=== PATIENT | male | born 1955 | race Caucasian/White ===

== ENCOUNTER 2016-12-19 14:09 | Observation (INO) ==
--- NOTE | 2016-12-19 14:32 | Emergency Department Note ---
Disposition Clinical Impression: Atrial fibrillation Qualifiers: Atrial fibrillation type: chronic Qualified Code(s): I48.2 - Chronic atrial fibrillation Disposition: Admitted As Inpatient Condition: Good Referrals: Flor Jerome [Primary Care Provider] - Forms: ED Satisfaction Letter Time of Disposition: 15:36 Chest Pain HPI - General Chief Complaint: ED Chest Pain Stated Complaint: FIB RVR Time Seen by Provider: 12/19/16 14:17 Source: patient Mode of arrival: ambulatory Limitations: no limitations Vital Signs Reviewed: Yes Nursing Notes Reviewed: Yes - History of Present Illness HPI Narrative: 61-year-old male presents from flame degreaser's office for atrial fibrillation with rapid ventricular response. He states that he has had A. fib for "years" and does not have any symptoms at this time. He denies any medication noncompliance, but admits that his diltiazem was increased about 2 weeks ago due to elevated heart rates. He denies any chest pain, shortness of breath, cough, cold, recent illness or injury. He denies any GI or symptoms, rashes or edema. He is not anticoagulated this time, based flame degreaser today told him that he should be due to his diabetes for stroke prevention. He used to be on xarelto, but stopped that 2 years ago for hematuria due to bladder tumors. His tumors were removed approximately 2 years ago. He does not believe that these were cancerous. He has not had any bleeding since then, but has not been anticoagulated since then. He only takes an aspirin daily. Pt complaint: chest pain - Related Data Allergies Allergy/AdvReac Type Severity Reaction Status Date / Time cephalexin [From Keflex] Allergy See Verified 12/19/16 14:39 Comments clarithromycin [From Biaxin] Allergy See Verified 12/19/16 14:39 Comments metoclopramide [From Reglan] Allergy See Verified 12/19/16 14:39 Comments All systems ED: reviewed and negative except as stated. Chest Pain PMH - Past Medical History Medical history: Reports: atrial fibrillation, diabetes Physical Exam - Head Head exam: atraumatic, normocephalic, normal inspection - Eye Eye exam: Present: normal appearance, PERRL, EOMI - ENT ENT exam: normal exam, normal oropharynx, mucous membranes moist - Neck Neck exam: Present: normal inspection, full ROM, trachea midline - Chest Chest inspection: Present: normal inspection, symmetric chest wall rise - Respiratory Respiratory exam: Clear to auscultation bilaterally without wheezes rales or rhonchi Cardiovascular Irregularly irregular. No murmur. - Abdominal Exam Abdominal exam: Present: soft, Non-Tender. Absent: tenderness, distention, guarding, rebound, rigidity - Extremities Exam Extremities exam: Present: normal inspection, full ROM - Expanded Lower Extremity Exam Hip/Pelvis exam: Present: normal inspection, full ROM - Back Exam Back exam: Present: normal inspection, full ROM. Absent: tenderness, CVA tenderness (R), CVA tenderness (L) - Neurological Exam Neurological exam: Present: alert, oriented X3, CN II-XII intact - Psychiatric Psychiatric exam: Present: normal affect, normal mood - Skin Skin exam: Present: warm, dry, intact, normal color Course - Reevaluation(s) Reevaluation #1: Labs and chest x-ray reviewed and are unremarkable. TSH is pending. After diltiazem bolus of 25 mg followed by drip of 10 mg the heart rate has improved to 80-100. Time: 15:21 Reevaluation #2: Case discussed with flame degreaser global compensation manager Dr. Howe. He recommends Lovenox for anticoagulation and an echocardiogram ordered as an inpatient. He requests hospitalist for admission. The hospitalist Dr. Carrero accepts the patient to the hospitalist service. Time: 15:37 Vital Signs Temperature 98.1 F 12/19/16 14:31 Pulse Rate 134 12/19/16 14:31 Respiratory Rate 18 12/19/16 14:31 Blood Pressure 145/114 12/19/16 14:31 O2 Sat by Pulse Oximetry 95 12/19/16 14:31 Temperature 98.1 F 12/19/16 14:31 Pulse Rate 134 12/19/16 14:31 Respiratory Rate 18 12/19/16 14:31 Blood Pressure 145/114 12/19/16 14:31 O2 Sat by Pulse Oximetry 95 12/19/16 14:31 Oxygen Delivery Oxygen Delivery Room Air Chest Pain - Lab Data Lab results reviewed: Yes I reviewed the patient's lab results. Result diagrams: 12/19/16 14:30 12/19/16 14:30 Lab Results 12/19/16 12/19/16 12/19/16 Range/Units 14:30 14:30 14:30 WBC 10.3 (4.3-11.1) K/mcL RBC 5.40 (4.19-5.50) M/mcL Hgb 16.5 (12.9-16.9) g/dL Hct 49.0 (37.5-50.1) % MCV 90.7 (83.0-100.0) fL MCH 30.6 (28.0-33.3) pg MCHC 33.7 (31.6-35.5) g/dL RDW 13.2 (11.5-14.5) % Plt Count 273 (140-400) K/mcL MPV 9.4 (9.4-12.4) fL Immature Gran % 0.3 (0-4) % Seg Neutrophils % 71.7 % Lymphocytes % 21.3 % Monocytes % 4.9 % Eosinophils % 1.3 % Basophils % 0.5 % Neutrophils # 7.4 (1.6-8.9) K/mcL Lymphocytes # 2.2 (0.6-4.6) K/mcL Monocytes # 0.5 (0.0-1.3) K/mcL Eosinophils # 0.1 (0.0-0.6) K/mcL Basophils # 0.1 (0.0-0.2) K/mcL PT 12.3 H (9.4-12.1) Seconds INR 1.1 APTT 33.0 (26.0-36.0) Seconds Sodium 139 (136-145) mEq/L Potassium 4.4 (3.5-4.5) mEq/L Chloride 104 (98-109) mEq/L Carbon Dioxide 21 (19-29) mEq/L BUN 18 (8-26) mg/dL Creatinine 1.31 H (0.72-1.25) mg/dL Est GFR ( Amer) > 60 (> 60) Est GFR (Non-Af Amer) 55 L (> 60) BUN/Creatinine Ratio 14 (6-26) Glucose 391 H (70-99) mg/dL Calculated Osmolality 306 H (280-300) Calcium 9.6 (8.6-10.8) mg/dL Troponin I (0-0.03) ng/mL 12/19/16 Range/Units 14:30 WBC (4.3-11.1) K/mcL RBC (4.19-5.50) M/mcL Hgb (12.9-16.9) g/dL Hct (37.5-50.1) % MCV (83.0-100.0) fL MCH (28.0-33.3) pg MCHC (31.6-35.5) g/dL RDW (11.5-14.5) % Plt Count (140-400) K/mcL MPV (9.4-12.4) fL Immature Gran % (0-4) % Seg Neutrophils % % Lymphocytes % % Monocytes % % Eosinophils % % Basophils % % Neutrophils # (1.6-8.9) K/mcL Lymphocytes # (0.6-4.6) K/mcL Monocytes # (0.0-1.3) K/mcL Eosinophils # (0.0-0.6) K/mcL Basophils # (0.0-0.2) K/mcL PT (9.4-12.1) Seconds INR APTT (26.0-36.0) Seconds Sodium (136-145) mEq/L Potassium (3.5-4.5) mEq/L Chloride (98-109) mEq/L Carbon Dioxide (19-29) mEq/L BUN (8-26) mg/dL Creatinine (0.72-1.25) mg/dL Est GFR ( Amer) (> 60) Est GFR (Non-Af Amer) (> 60) BUN/Creatinine Ratio (6-26) Glucose (70-99) mg/dL Calculated Osmolality (280-300) Calcium (8.6-10.8) mg/dL Troponin I 0.00 (0-0.03) ng/mL - Radiology Data Radiology results reviewed: Yes I reviewed the patient's radiology results. - EKG Data EKG attestation: Yes I reviewed and interpreted this EKG. EKG results narrative: A. fib with RVR at [address] elevation or depression. Nonspecific diffuse ST changes. Atrial fibrillation with RVR is new compared with 04/14/2011.
[2016-12-19 14:49] LABS: Basophils # 0.1 K/mcL (0.0-0.2); Basophils % 0.5 %; Eosinophils # 0.1 K/mcL (0.0-0.6); Eosinophils % 1.3 %; Hemoglobin 16.5 g/dL (12.9-16.9); Immature Granulocytes % 0.3 % (0-4); Lymphocytes # 2.2 K/mcL (0.6-4.6); Lymphocytes % 21.3 %; Mean Corpuscular HGB Conc 33.7 g/dL (31.6-35.5); Mean Corpuscular Hemoglobin 30.6 pg (28.0-33.3); Mean Corpuscular Volume 90.7 fL (83.0-100.0); Mean Platelet Volume 9.4 fL (9.4-12.4); Monocytes # 0.5 K/mcL (0.0-1.3); Monocytes % 4.9 %; Neutrophils # 7.4 K/mcL (1.6-8.9); Platelet Count 273 K/mcL (140-400); Red Cell Distribution Width 13.2 % (11.5-14.5); Segmented Neutrophils % 71.7 %
[2016-12-19 14:57] LABS: INR 1.1; Prothrombin Time 12.3 Seconds (9.4-12.1)
[2016-12-19 15:00] LABS: BUN/Creatinine Ratio 14 (6-26); Blood Urea Nitrogen 18 mg/dL (8-26); Calcium 9.6 mg/dL (8.6-10.8); Carbon Dioxide 21 mEq/L (19-29); Chloride 104 mEq/L (98-109); Glucose 391 mg/dL (70-99); Osmolality,Calculated 306 (280-300); Potassium 4.4 mEq/L (3.5-4.5); Sodium 139 mEq/L (136-145); eGFR For African Americans > 60 (> 60); eGFR For Non-African Americans 55 (> 60)
[2016-12-19] MEDS ORDERED: *HR* Enoxaparin 120 MG/0.8 ML SYRINGE SQ STA (15:28)
[2016-12-19 15:41] LABS: Thyroid Stimulating Hormone 1.378 mcIU/mL (0.350-4.840)
--- NOTE | 2016-12-19 16:12 | Emergency Department Note ---
Disposition Clinical Impression: Atrial fibrillation Qualifiers: Atrial fibrillation type: chronic Qualified Code(s): I48.2 - Chronic atrial fibrillation Disposition: Admitted As Inpatient Condition: Good General Adult HPI - General Chief complaint: ED Arrhythmia/Palpitations Stated complaint: FIB RVR Time Seen by Provider: 12/19/16 14:17 Source: patient Mode of arrival: ambulatory Limitations: no limitations - History of Present Illness Pain Scale: 0 - Related Data Home Medications Medication Instructions Recorded Confirmed Aspirin 81 mg PO DAILY 12/19/16 12/19/16 Atorvastatin Calcium [Lipitor] 80 mg PO HS 12/19/16 12/19/16 Diltiazem HCl [Diltiazem ER] 120 mg PO 12/19/16 12/19/16 Diltiazem HCl [Diltiazem ER] 180 mg PO [facility] 12/19/16 12/19/16 Gabapentin [Neurontin] 300 mg PO QA 12/19/16 12/19/16 Gabapentin [Neurontin] 900 mg PO 12/19/16 12/19/16 Insulin Glargine [Lantus] 30 - 40 unit SQ 12/19/16 12/19/16 Insulin LISPRO [Humalog Kwikpen 0 unit SQ TIDWM 12/19/16 12/19/16 U-100] Lisinopril [Zestril] 5 mg PO DAILY 12/19/16 12/19/16 Venlafaxine XR (24 HR) [Effexor XR] 150 mg PO DAILY 12/19/16 12/19/16 Allergies Allergy/AdvReac Type Severity Reaction Status Date / Time cephalexin [From Keflex] Allergy See Verified 12/19/16 14:39 Comments clarithromycin [From Biaxin] Allergy See Verified 12/19/16 14:39 Comments metoclopramide [From Reglan] Allergy See Verified 12/19/16 14:39 Comments Past Medical History - Past Medical History Medical history: Reports: atrial fibrillation, diabetes - Social History Smoking Status: Never smoker Alcohol use: Reports: none Drug use: Reports: none Physical Exam - General Limitations: no limitations General appearance: alert, in no apparent distress Course - Reevaluation(s) Reevaluation #1: I saw the patient with the resident, Dr. Acosta. Patient presented with a rapid heart rate. He has a history of A. fib and recently has been having high heart rates and has been increasing his home medications under the direction of his physician. However today's heart rate was very high. He arrives with a heart rate at times in the 170 range. It is obviously in atrial fibrillation. He was given Cardizem IV and then started on a Cardizem drip. Heart rate is now 100 although still in atrial fibrillation. We have spoken with the hospice already in arranging to admit the patient. There is no sign of ischemia or other complication. Time: 16:12 Vital Signs Temperature 98.1 F 12/19/16 14:31 Pulse Rate 134 12/19/16 14:31 Respiratory Rate 18 12/19/16 14:31 Blood Pressure 145/114 12/19/16 14:31 O2 Sat by Pulse Oximetry 95 12/19/16 14:31 Temperature 98.1 F 12/19/16 14:31 Pulse Rate 106 12/19/16 15:36 Respiratory Rate 18 12/19/16 16:05 Blood Pressure 134/78 12/19/16 16:05 O2 Sat by Pulse Oximetry 95 12/19/16 15:36 Oxygen Delivery Oxygen Delivery Room Air Medical Decision Making - Lab Data Result diagrams: 12/19/16 14:30 12/19/16 14:30 Lab Results 12/19/16 12/19/16 12/19/16 Range/Units 14:30 14:30 14:30 WBC 10.3 (4.3-11.1) K/mcL RBC 5.40 (4.19-5.50) M/mcL Hgb 16.5 (12.9-16.9) g/dL Hct 49.0 (37.5-50.1) % MCV 90.7 (83.0-100.0) fL MCH 30.6 (28.0-33.3) pg MCHC 33.7 (31.6-35.5) g/dL RDW 13.2 (11.5-14.5) % Plt Count 273 (140-400) K/mcL MPV 9.4 (9.4-12.4) fL Immature Gran % 0.3 (0-4) % Seg Neutrophils % 71.7 % Lymphocytes % 21.3 % Monocytes % 4.9 % Eosinophils % 1.3 % Basophils % 0.5 % Neutrophils # 7.4 (1.6-8.9) K/mcL Lymphocytes # 2.2 (0.6-4.6) K/mcL Monocytes # 0.5 (0.0-1.3) K/mcL Eosinophils # 0.1 (0.0-0.6) K/mcL Basophils # 0.1 (0.0-0.2) K/mcL PT 12.3 H (9.4-12.1) Seconds INR 1.1 APTT 33.0 (26.0-36.0) Seconds Sodium 139 (136-145) mEq/L Potassium 4.4 (3.5-4.5) mEq/L Chloride 104 (98-109) mEq/L Carbon Dioxide 21 (19-29) mEq/L BUN 18 (8-26) mg/dL Creatinine 1.31 H (0.72-1.25) mg/dL Est GFR ( Amer) > 60 (> 60) Est GFR (Non-Af Amer) 55 L (> 60) BUN/Creatinine Ratio 14 (6-26) Glucose 391 H (70-99) mg/dL Calculated Osmolality 306 H (280-300) Calcium 9.6 (8.6-10.8) mg/dL Troponin I (0-0.03) ng/mL TSH 1.378 (0.350-4.840) mcIU/mL 12/19/16 Range/Units 14:30 WBC (4.3-11.1) K/mcL RBC (4.19-5.50) M/mcL Hgb (12.9-16.9) g/dL Hct (37.5-50.1) % MCV (83.0-100.0) fL MCH (28.0-33.3) pg MCHC (31.6-35.5) g/dL RDW (11.5-14.5) % Plt Count (140-400) K/mcL MPV (9.4-12.4) fL Immature Gran % (0-4) % Seg Neutrophils % % Lymphocytes % % Monocytes % % Eosinophils % % Basophils % % Neutrophils # (1.6-8.9) K/mcL Lymphocytes # (0.6-4.6) K/mcL Monocytes # (0.0-1.3) K/mcL Eosinophils # (0.0-0.6) K/mcL Basophils # (0.0-0.2) K/mcL PT (9.4-12.1) Seconds INR APTT (26.0-36.0) Seconds Sodium (136-145) mEq/L Potassium (3.5-4.5) mEq/L Chloride (98-109) mEq/L Carbon Dioxide (19-29) mEq/L BUN (8-26) mg/dL Creatinine (0.72-1.25) mg/dL Est GFR ( Amer) (> 60) Est GFR (Non-Af Amer) (> 60) BUN/Creatinine Ratio (6-26) Glucose (70-99) mg/dL Calculated Osmolality (280-300) Calcium (8.6-10.8) mg/dL Troponin I 0.00 (0-0.03) ng/mL TSH (0.350-4.840) mcIU/mL Attestation Statement - Attestation Attestation: I, Dr. Guajardo, examined this patient [id number] and my medical decision- making was reviewed with Dr. Acosta, Resident Physician. I agree with the documented findings, disposition and treatment plan as described except to the extent set forth below. Please see my progress notes for details.
[2016-12-19] MEDS ORDERED: D5% in Water 1,000 ML IV PRN (18:53)
[2016-12-19] MEDS ORDERED: Dextrose Gel 15 GM PO PRN ×2 (18:53)
[2016-12-19] MEDS ORDERED: *HR* Dextrose 50 % in Water (Syg) 50 ML SYRINGE IVP PRN (18:53)
--- NOTE | 2016-12-19 18:57 | Internal Med History&Physical ---
<Travon Benavides - Last Filed: 12/19/16 20:04> Date of Encounter: 12/19/16 Time of Encounter: 18:57 Assessment and Plan (1) Atrial fibrillation Current visit: Yes Status: Acute -Patient found to be in atrial fibrillation at [place] cardiology office. Sent to the emergency department and admitted as an inpatient. -Troponin negative, chest x-ray unchanged from previous, EKG shows atrial fibrillation RVR, CBC within normal limits, BMP shows creatinine 1.3, TSH normal. -Unknown trigger of his A. fib -Currently asymptomatic, denies chest pain and shortness of breath. Resting comfortably in bed. HR 105 in afib -Echo ordered, labs ordered. Resume Cardizem drip, continue Lovenox -We will order diet for patient tonight. Patient nothing by mouth at midnight, may resume diet after cardiology has seen the patient and evaluate. Qualifiers: Atrial fibrillation type: chronic Qualified Code(s): I48.2 - Chronic atrial fibrillation (2) Diabetes type 2, uncontrolled Current visit: Yes Status: Acute -Patient states that his last A1c was 8.5. -Currently on insulin. Lantus and Humalog 35-40 -Glucose currently >300. -We will resume home medication, frequent blood sugar checks. 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: with jumpbasting machine operator use Qualified Code(s) : E11.8 - Type 2 diabetes mellitus with unspecified complications; E11.65 - Type 2 diabetes mellitus with hyperglycemia; Z79.4 - halfway (current) use of insulin (3) Hyperlipidemia Current visit: Yes Status: Acute -We will resume home med (4) Depression Current visit: Yes Status: Chronic -We will resume home meds Qualifiers: Depression Type: unspecified Qualified Code(s): F32.9 - Major depressive disorder, single episode, unspecified Internal Medicine - H&P: HPI Chief complaint: A fib Admitted From: Emergency Dept (From [facility] office to ED to the floor) Plans for Post Hospital Care: Home History of present illness: Mr. Chacko is a 61 year old male, PMH Ablationx2, HTN, DM, Depression, admitted for atrial fibrillation. He was at Dr. Arceo's office today for routine checkup of afib, discovered to have A. fib and hypertension refractory to treatment, patient sent to the [place] emergency department and admitted. At the time patient stated his felt fluttering. Currently is asymptomatic. Denies nausea, vomiting, chest pain, shortness of breath, palpitations, fevers. He is resting comfortably in bed and smiling. He has no questions or concerns at this time. States he has been compliant with his medication, Cardizem 180 mg in the morning and 120 mg at night. He has had A. fib for years , underwent 2 cardiac ablations. Notices his "atrial fib has been acting up for the past year at night when I go to bed." Currently only takes an aspirin. Denies smoking, drinking, drug use. 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 He lives at home with her. No previous history of stent or CABG. has been admitted previously for atrial fibrillation x 1 Past Med Surg Social Fam HX - Past Medical History Medical history: atrial fibrillation, diabetes, hypertension, kidney stones, other (Bladder cancer with mass removal that was "pre malignant") Psychiatric history: depression - Past Surgical History Surgical History: cancer surgery (Bladder), cholecystectomy, other (Cardiac ablation 2) - Social History Smoking Status: Never smoker Smokeless Tobacco Status: No Alcohol use: none Drug use: none Internal Medicine - H&P: Meds Aspirin 81 mg PO DAILY 12/19/16 [History] Atorvastatin Calcium [Lipitor] 80 mg PO HS 12/19/16 [History] Gabapentin [Neurontin] 300 mg PO QAM 12/19/16 [History] Gabapentin [Neurontin] 900 mg PO HS 12/19/16 [History] Insulin Glargine [Lantus] 30 - 40 unit SQ HS 12/19/16 [History] Insulin LISPRO [Humalog Kwikpen U-100] 0 unit SQ TIDWM 12/19/16 [History] Lisinopril [Zestril] 5 mg PO DAILY 12/19/16 [History] Venlafaxine XR (24 HR) [Effexor Xr] 150 mg PO DAILY 12/19/16 [History] Apixaban [Eliquis] 5 mg PO BID #30 tablet 12/20/16 [Rx] Diltiazem CD (24hr) [Cardizem CD] 300 mg PO DAILY #30 cap.er.24h 12/20/16 [Rx] Lisinopril [Zestril] 5 mg PO DAILY tablet 12/20/16 [Rx] Allergies cephalexin [From Keflex] Allergy (Verified 12/19/16 14:39) See Comments clarithromycin [From Biaxin] Allergy (Verified 12/19/16 14:39) See Comments metoclopramide [From Reglan] Allergy (Verified 12/19/16 14:39) See Comments All Systems PM: A 10-system review of systems was performed and is negative for pertinent findings except as documented above in the HPI. - Constitutional Constitutional: no chills, no fever(s), no night sweats - EENT Eyes: no change in vision, no discharge, no pain, no photophobia Nose, mouth and throat: no dysphagia, no nasal discharge, no neck pain, no sore throat - Cardiovascular Cardiovascular ROS IM: no chest pain, no diaphoresis, no dyspnea, no lightheadedness, no palpitations, no syncope - Respiratory Respiratory: no cough, no dyspnea, no wheezing, no excessive phlegm production - Gastrointestinal Gastrointestinal: no abdominal pain, no diarrhea, no hematemesis, no hematochezia, no melena, no nausea, no vomiting - Musculoskeletal Musculoskeletal ROS IM: no numbness, no tingling - Integumentary Integumentary IM: no rash, no unusual bruising - Neurological Neurological ROS: no confusion, no convulsions, no focal weakness, no numbness, no tingling, no tremor(s) - Psychiatric Psychiatric: as per HPI, depression, no anxiety, no confusion - Endocrine Endocrine IM: no polydipsia, no polyphagia, no polyuria - Hematologic/Lymphatic Hematologic/Lymphatic: no easy bruising - Allergic/Immunologic Allergic/Immunologic: no tongue swelling, no throat swelling - Constitutional Vitals: Temp Pulse Resp BP Pulse Ox 98.2 F 97 18 140/83 93 L 12/19/16 17:08 12/19/16 17:08 12/19/16 17:08 12/19/16 17:08 12/19/16 18:10 - Head Head exam: Present: atraumatic, normocephalic - Respiratory Respiratory exam: Present: decreased breath sounds, CTAB - Cardiovascular Cardiovascular exam: Present: irregular rhythm, tachycardia. Absent: diastolic murmur, gallop, rubs, systolic murmur - GI/Abdominal GI/Abdominal exam: Present: normal bowel sounds, soft, no peritoneal signs. Absent: distended, tenderness - Neurological Exam Neurological exam: Present: oriented X3, no focal deficits. Absent: pronater drift, facial droop, speech deficit - Psychiatric Psychiatric exam: Present: normal affect, normal mood - Skin Skin exam: Present: dry, intact - Other Additional findings: No peripheral edema Internal Med - H&P Results - Labs CBC & Chem 7: 12/19/16 14:30 12/19/16 14:30 <Jj Johnson - Last Filed: 12/20/16 14:20> Date of Encounter: 12/20/16 Internal Medicine - H&P: HPI History of present illness: Mr. Chacko is a 61 year old male Past Med Surg Social Fam HX - Family History Mother Hx Family Cardiac Disorders: No Hx Family Cancer: No All Systems PM: A 10-system review of systems was performed and is negative for pertinent findings except as documented above in the HPI. - Constitutional Vitals: Temp Pulse Resp BP Pulse Ox 98 F 80 16 123/79 95 12/20/16 12:28 12/20/16 12:28 12/20/16 12:28 12/20/16 12:28 12/20/16 12:28 Internal Med - H&P Results - Labs CBC & Chem 7: 12/20/16 04:26 12/20/16 04:26 Labs: Short CBC 12/20/16 Range/Units 04:26 WBC 8.9 (4.3-11.1) K/mcL Hgb 15.6 (12.9-16.9) g/dL Hct 46.4 (37.5-50.1) % Plt Count 272 (140-400) K/mcL BMP 12/20/16 04:26 Sodium 143 Potassium 3.8 Chloride 107 Carbon Dioxide 22 BUN 18 Creatinine 1.07 Glucose 167 H Calcium 9.6 Liver Function 12/20/16 Range/Units 04:26 Total Bilirubin 0.7 (0.2-1.2) mg/dL AST 25 (5-34) Units/L ALT 43 (0-55) Units/L Alkaline Phosphatase 97 (38-126) Units/L Albumin 3.3 L (3.5-5.0) g/dL - Attending Attestation I examined this patient and my medical decision-making was reviewed with the Resident Physician. I agree with the documented findings, disposition and treatment plan as described except to the extent set forth below. Mr. Chacko is a 61y/o male with a hx of atrial fibrillation sent to ED from card office due to rapid atrial fibrillation. He denies CP or SOB. No abd pain. Has been trying to wait it out at home but continued to have episodes of tachycardia. He has been placed in observation for further evaluation and treatment. Exam Alert. Comfortable and pleasant. Heart irreg and tachycardic Lungs clear Abd obese but not tender. No edema Labs from ED reviewed I/P 1. Atrial fib with RVR - on Cardizem drip. Card eval. Seems to be improving at this time. 2. DM on insulin with hyperglycemia 3. HLD Further diagnoses and plan as above.
[2016-12-19] MEDS ORDERED: Insulin LISPRO 300 UNITS/3 ML VIAL SQ SCH (21:00)
[2016-12-19] MEDS ORDERED: Insulin DETEMIR 100 UNIT/ML X5UNITS SQ SCH (21:00)
[2016-12-20 04:52] LABS: Hematocrit 46.4 % (37.5-50.1); Hemoglobin 15.6 g/dL (12.9-16.9); Immature Platelets 1.7 % (1.1-6.1); Mean Corpuscular HGB Conc 33.6 g/dL (31.6-35.5); Mean Corpuscular Hemoglobin 30.8 pg (28.0-33.3); Mean Corpuscular Volume 91.5 fL (83.0-100.0); Mean Platelet Volume 9.3 fL (9.4-12.4); Red Blood Count 5.07 M/mcL (4.19-5.50); Red Cell Distribution Width 13.2 % (11.5-14.5)
[2016-12-20 05:12] LABS: Alanine Aminotransferase 43 Units/L (0-55); Albumin 3.3 g/dL (3.5-5.0); Alkaline Phosphatase 97 Units/L (38-126); Aspartate Amino Transferase 25 Units/L (5-34); BUN/Creatinine Ratio 17 (6-26); Bilirubin,Total 0.7 mg/dL (0.2-1.2); Blood Urea Nitrogen 18 mg/dL (8-26); Calcium 9.6 mg/dL (8.6-10.8); Carbon Dioxide 22 mEq/L (19-29); Chloride 107 mEq/L (98-109); Globulin 3.2 g/dL (2.4-3.5); Glucose 167 mg/dL (70-99); Magnesium 1.5 mg/dL (1.6-2.6); Osmolality,Calculated 302 (280-300); Potassium 3.8 mEq/L (3.5-4.5); Sodium 143 mEq/L (136-145); Total Protein 6.5 g/dL (6.0-8.3); eGFR For African Americans > 60 (> 60); eGFR For Non-African Americans > 60 (> 60)
[2016-12-20 05:21] LABS: INR 1.2
[2016-12-20] MEDS ORDERED: *HR* Enoxaparin 120 MG/0.8 ML SYRINGE SQ SCH (07:00)
[2016-12-20] MEDS ORDERED: Venlafaxine XR (24 HR) 150 MG CAP.ER.24H PO SCH (09:00)
--- NOTE | 2016-12-20 09:14 | Electrocardiograph Report ---
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
--- NOTE | 2016-12-20 09:21 | Internal Med Progress Note ---
<Travon Benavides - Last Filed: 12/20/16 11:20> Date of Encounter: 12/20/16 Time of Encounter: 07:30 - Assessment and plan (1) Atrial fibrillation Current Visit: Yes Status: Acute Assessment and plan: -Currently RRR on Cardizem drip 12.5mg. -Transition to oral agents -ECHO ordered. -Cardiology has seen patient. Will follow additional recommendations -Patient discharged tomorrow pending ECHO read and off drip Qualifiers: Atrial fibrillation type: paroxysmal Qualified Code(s): I48.0 - Paroxysmal atrial fibrillation (2) Diabetes type 2, uncontrolled Current Visit: Yes Status: Acute Assessment and plan: -Improvement compared to admission -Continue therapy. Qualifiers: Diabetes mellitus complication status: with unspecified complications Diabetes mellitus exterminator helper insulin use: with exterminator helper use Qualified Code(s) : E11.8 - Type 2 diabetes mellitus with unspecified complications; Z79.4 - joint terminal attack controller (current) use of insulin (3) Hyperlipidemia Current Visit: Yes Status: Acute (4) Depression Current Visit: Yes Status: Chronic Assessment and plan: -Continue medication Qualifiers: Depression Type: unspecified Qualified Code(s): F32.9 - Major depressive disorder, single episode, unspecified - Subjective Interval history: Patient has no complaints or concerns. Sitting up in the chair. Feeling like he is back to baseline. Asymptomatic. Cardiology consult seen with patient. - Constitutional Vitals: Temp Pulse Resp BP Pulse Ox 98.5 F 68 16 143/68 95 12/20/16 08:04 12/20/16 08:04 12/20/16 08:04 12/20/16 08:04 12/20/16 08:04 - Respiratory Respiratory exam: Present: CTAB. Absent: accessory muscle use, rales, rhonchi, wheezes - Cardiovascular Cardiovascular exam: Present: RRR, +S1, +S2. Absent: diastolic murmur, gallop, rubs, systolic murmur - GI/Abdominal GI/Abdominal exam: Present: soft, no peritoneal signs. Absent: distended, tenderness - Neurological Exam Neurological exam: Present: oriented X3, no focal deficits. Absent: pronater drift, facial droop, speech deficit - Psychiatric Psychiatric exam: Present: normal affect, normal mood Internal Medicine: Result - Labs CBC & Chem 7: 12/20/16 04:26 12/20/16 04:26 Labs: Short CBC 12/20/16 Range/Units 04:26 WBC 8.9 (4.3-11.1) K/mcL Hgb 15.6 (12.9-16.9) g/dL Hct 46.4 (37.5-50.1) % Plt Count 272 (140-400) K/mcL BMP 12/20/16 04:26 Sodium 143 Potassium 3.8 Chloride 107 Carbon Dioxide 22 BUN 18 Creatinine 1.07 Glucose 167 H Calcium 9.6 Liver Function 12/20/16 Range/Units 04:26 Total Bilirubin 0.7 (0.2-1.2) mg/dL AST 25 (5-34) Units/L ALT 43 (0-55) Units/L Alkaline Phosphatase 97 (38-126) Units/L Albumin 3.3 L (3.5-5.0) g/dL - ABG Interpretation ABG results: PT/INR, D-dimer PT 13.0 Seconds (9.4-12.1) H 12/20/16 04:26 Consult Discharge Plan - Plan Instructions: Diltiazem (By mouth), Apixaban (By mouth) Referrals: Flor Jerome [Primary Care Provider] - (Admitted for Afib RVR. Patient was converted with medication and sent home with eliquis and 300mg cartizem. ) Wendy Karimi CNP [Partnered Physician] - 12/29/16 10:00 am (appointment is for [place], [place] location) Prescriptions: Apixaban [Eliquis] 5 mg PO BID #30 tablet Diltiazem CD (24hr) [Cardizem CD] 300 mg PO DAILY #30 cap.er.24h <Jj Johnson - Last Filed: 12/20/16 16:10> Date of Encounter: 12/20/16 - Assessment and plan (1) Atrial fibrillation Current Visit: Yes Status: Resolved Qualifiers: Atrial fibrillation type: paroxysmal Qualified Code(s): I48.0 - Paroxysmal atrial fibrillation (2) Diabetes type 2, uncontrolled Current Visit: Yes Status: Acute Qualifiers: Diabetes mellitus complication status: with hyperglycemia Diabetes mellitus exterminator helper insulin use: with exterminator helper use Qualified Code(s): E11.65 - Type 2 diabetes mellitus with hyperglycemia; Z79.4 - joint terminal attack controller (current) use of insulin (3) Hyperlipidemia Current Visit: Yes Status: Chronic Qualifiers: Hyperlipidemia type: mixed hyperlipidemia Qualified Code(s): E78.2 - Mixed hyperlipidemia (4) Depression Current Visit: Yes Status: Chronic Qualifiers: Depression Type: unspecified Qualified Code(s): F32.9 - Major depressive disorder, single episode, unspecified (5) Obesity, Class III, BMI 40-49.9 (morbid obesity) Current Visit: Yes Status: Chronic - Constitutional Vitals: Temp Pulse Resp BP Pulse Ox 98.3 F 78 16 134/65 98 12/20/16 15:08 12/20/16 15:08 12/20/16 15:08 12/20/16 15:08 12/20/16 15:08 Internal Medicine: Result - Labs CBC & Chem 7: 12/20/16 04:26 12/20/16 04:26 Labs: Short CBC 12/20/16 Range/Units 04:26 WBC 8.9 (4.3-11.1) K/mcL Hgb 15.6 (12.9-16.9) g/dL Hct 46.4 (37.5-50.1) % Plt Count 272 (140-400) K/mcL BMP 12/20/16 04:26 Sodium 143 Potassium 3.8 Chloride 107 Carbon Dioxide 22 BUN 18 Creatinine 1.07 Glucose 167 H Calcium 9.6 Liver Function 12/20/16 Range/Units 04:26 Total Bilirubin 0.7 (0.2-1.2) mg/dL AST 25 (5-34) Units/L ALT 43 (0-55) Units/L Alkaline Phosphatase 97 (38-126) Units/L Albumin 3.3 L (3.5-5.0) g/dL - ABG Interpretation ABG results: PT/INR, D-dimer PT 13.0 Seconds (9.4-12.1) H 12/20/16 04:26 - Attending Attestation I examined this patient and my medical decision-making was reviewed with the Resident Physician on 12/20/16. I agree with the documented findings, disposition and treatment plan as described except to the extent set forth below. Please see discharge summary of this same date. Pt ultimately discharged to home.
[2016-12-20] MEDS ORDERED: Magnesium Sulfate 2 GM in D5% in Water 100 ML IVPB ONE (09:43)
--- NOTE | 2016-12-20 11:00 | Cardiology Consult Note ---
Addendum entered and electronically signed by Wendy Karimi CNP 12/20/16 14: 24: NEELIMA: EF 55%, mildly dilated left atrium. Reviewed Telemetry with Dr. Arturo Coppola--appears to be episodes of SVT overnight. Further work-up in the outpatient setting. Discussed and reviewed patient with Dr. Arturo Coppola who will be co-signing physician. Addendum entered and electronically signed by Wendy Karimi CNP 12/20/16 13: 12: Discussed with Dr. Howe; will start Eliquis 5 mg BID. Savings card placed in chart. Stop lovenox. Follow-up scheduled with Cardio at [facility] [place] 12/29/16 at 10:00 AM. Original Note: Date of Encounter: 12/20/16 Time of Encounter: 11:00 Assessment and Plan (1) Atrial fibrillation Current Visit: Yes Status: Acute Atrial fibrillation with RVR in the Cardiology yesterday. Suspect hx of PAF. Started on Cardizem gtt--now SR. On gtt at 12.5 mg/hr, will start 300 mg cardizem now, to d/c gtt 1-2 hours after dose. Echocardiogram pending. TSH normal. Potassium stable. Mag=1.5--IVP Mag rider ordered. CHA2Ds Vasc= 3-4 (TIA, DMII, ?HTN). On Xarleto in the past, stopped several years ago due to hematuria. He was found to have reported tumors in bladder which underwent surgery for at [facility]; denies hematuria since procedure. He is agreeable to resume full anticoagulation, desires NOAC. Will first discuss with Dr. Howe. On therapeutic lovenox as inpatient--denies hematuria. Qualifiers: Atrial fibrillation type: paroxysmal Qualified Code(s): I48.0 - Paroxysmal atrial fibrillation Discussion w patient/family: The assessment and plan as outlined above was discussed with the patient and/or family members who expressed understanding and agreement. All questions were answered. Thank you for involving us in the care of your patient. Please call with any questions. The patient will be discussed and reviewed with Dr. Howe; changes to be made accordingly. History of Present Illness Consult date: 12/20/16 Requesting physician: Travon Benavides Consult reason: Afib with RVR Chief complaint: Palpitations History of present illness: Mr. Chacko is a 61 year old male with PMH significant for WPW s/p ablation ( 1999), DMII, CKD, and TIA who presented to the ED after found to be in atrial fibrillation with RVR at outpatient Cardiology office yesterday. HR was in the 150s at that time. He reports hx of "arrhythmia" 2-3 years ago, was on Xarelto but then stopped due to hematuria within the past year. Reports symptoms started close to a month ago, have increased in frequency over the past week. Symptoms include frequent palpitations usually lasting up to a minute or two. Denies dizziness, lightheadedness, pre-syncope/syncope, leg edema, chest pain, or dyspnea. Past Med Surg Social Fam HX - Past Medical History Medical history: atrial fibrillation, diabetes, hypertension, kidney stones, other (Bladder cancer with mass removal that was "pre malignant") Psychiatric history: depression - Past Surgical History Surgical History: cancer surgery (Bladder), cholecystectomy, other (Cardiac ablation 2) - Social History Smoking Status: Never smoker Smokeless Tobacco Status: No Alcohol use: none Drug use: none Medications and Allergies Aspirin 81 mg PO DAILY 12/19/16 [History] Atorvastatin Calcium [Lipitor] 80 mg PO HS 12/19/16 [History] Diltiazem HCl [Diltiazem ER] 120 mg PO HS 12/19/16 [History] Diltiazem HCl [Diltiazem ER] 180 mg PO QA 12/19/16 [History] Gabapentin [Neurontin] 300 mg PO QAM 12/19/16 [History] Gabapentin [Neurontin] 900 mg PO HS 12/19/16 [History] Insulin Glargine [Lantus] 30 - 40 unit SQ HS 12/19/16 [History] Insulin LISPRO [Humalog Kwikpen U-100] 0 unit SQ TIDWM 12/19/16 [History] Lisinopril [Zestril] 5 mg PO DAILY 12/19/16 [History] Venlafaxine XR (24 HR) [Effexor XR] 150 mg PO DAILY 12/19/16 [History] Allergies cephalexin [From Keflex] Allergy (Verified 12/19/16 14:39) See Comments clarithromycin [From Biaxin] Allergy (Verified 12/19/16 14:39) See Comments metoclopramide [From Reglan] Allergy (Verified 12/19/16 14:39) See Comments All Systems Review: A 10-system review of systems was performed and is negative for pertinent findings except as documented above in the HPI. - Cardiovascular Cardiovascular: as per HPI Physical Examination Vital Signs, Last 4 Hours Temp Pulse Resp BP Pulse Ox 12/20/16 09:00 95 12/20/16 08:04 98.5 F 68 16 143/68 95 General: Conversant, No Apparent Distress HEENT: Atraumatic, Normocephaly Cardiac: Reg Rate and Rhythm, Normal S1 and S2 Lungs: Normal Breath Sounds, No Wheeze, Rales, Rhonchi Neuro: Alert and responsive, No focal deficits noted Abdomen: Soft, Non-Tender Skin: No rashes noted on visualized skin Musculoskeletal: No Chest Wall Tenderness Extremities: Normal Pulses, Other (trace BLE edema) Results 12/20/16 04:26 12/20/16 04:26 Lab Results 12/20/16 12/20/16 12/20/16 04:26 04:26 04:26 WBC 8.9 Hgb 15.6 Hct 46.4 Plt Count 272 INR 1.2 APTT 34.0 Sodium 143 Potassium 3.8 Chloride 107 Carbon Dioxide 22 BUN 18 Creatinine 1.07 Glucose 167 H Calcium 9.6 Magnesium 1.5 L Total Bilirubin 0.7 AST 25 ALT 43 Alkaline Phosphatase 97 - Imaging and Cardiology Echo: pending Other Results: 12 hour tele: avg HR=94. - EKG Interpretation EKG results cardiology: personally reviewed Consult Discharge Plan - Plan Referrals: Flor Jerome [Primary Care Provider] - Wendy Karimi CNP [Partnered Physician] - 12/29/16 10:00 am (appointment is for [place], [place] location)
[2016-12-20] MEDS ORDERED: Diltiazem CD (24hr) 300 MG CAPSULE PO SCH (11:30)
[2016-12-20] MEDS: Insulin LISPRO 300 UNITS/3 ML VIAL SQ SCH ×2 (12:35→12:42)
--- NOTE | 2016-12-20 13:28 | Discharge Summary ---
<FilibertokalaniTravon crowe - Last Filed: 12/20/16 13:53> Date of Encounter: 12/20/16 Time of Encounter: 13:25 - Discharge Diagnosis (1) Atrial fibrillation Priority: Primary Status: Resolved Comments: -Patient currently regular sinus. Being weaned off of cartizem drip and started on oral cardizem 300mg -Patient would like to go home and has close cardiology followup -Will give prescription of Cardizem and xerelto. Qualifiers: Atrial fibrillation type: paroxysmal Qualified Code(s): I48.0 - Paroxysmal atrial fibrillation (2) Diabetes type 2, uncontrolled Priority: Primary Status: Acute Comments: -under better control. Qualifiers: Diabetes mellitus complication status: with unspecified complications Diabetes mellitus tank terminal gauger insulin use: with tank terminal gauger use Qualified Code(s) : E11.8 - Type 2 diabetes mellitus with unspecified complications; Z79.4 - FDC (current) use of insulin (3) Hyperlipidemia Priority: Secondary Status: Acute (4) Depression Priority: Secondary Status: Chronic Qualifiers: Depression Type: unspecified Qualified Code(s): F32.9 - Major depressive disorder, single episode, unspecified - Discharge Medications Prescriptions: Apixaban [Eliquis] 5 mg PO BID #30 tablet Diltiazem CD (24hr) [Cardizem CD] 300 mg PO DAILY #30 cap.er.24h Home Medications: Aspirin 81 mg PO DAILY 12/19/16 [History] Atorvastatin Calcium [Lipitor] 80 mg PO HS 12/19/16 [History] Gabapentin [Neurontin] 300 mg PO QAM 12/19/16 [History] Gabapentin [Neurontin] 900 mg PO HS 12/19/16 [History] Insulin Glargine [Lantus] 30 - 40 unit SQ HS 12/19/16 [History] Insulin LISPRO [Humalog Kwikpen U-100] 0 unit SQ TIDWM 12/19/16 [History] Lisinopril [Zestril] 5 mg PO DAILY 12/19/16 [History] Venlafaxine XR (24 HR) [Effexor Xr] 150 mg PO DAILY 12/19/16 [History] Apixaban [Eliquis] 5 mg PO BID #30 tablet 12/20/16 [Rx] Diltiazem CD (24hr) [Cardizem CD] 300 mg PO DAILY #30 cap.er.24h 12/20/16 [Rx] Lisinopril [Zestril] 5 mg PO DAILY tablet 12/20/16 [Rx] Allergies/Adverse Reactions: Allergies cephalexin [From Keflex] Allergy (Verified 12/19/16 14:39) See Comments clarithromycin [From Biaxin] Allergy (Verified 12/19/16 14:39) See Comments metoclopramide [From Reglan] Allergy (Verified 12/19/16 14:39) See Comments Procedures/tests Complete & Pending: Procedures Performed prior 72 hours Category Date Time Status EV echocardiogram Routine Y 12/20/16 19:02 Completed Date of admission: 12/19/16 15:39 Primary care physician: Flor Jerome Consults: 12/20/16 07:00 Consult to Cardiology [CONS] Routine Comment: Consulting Provider: Cardiology Xiomara Reason for Consult: Chronic Afib. Dr. Brooks sent from office to ED. Call Completed: Yes Discharging clinician: Travon Benavides Anticipated date of discharge: 12/20/16 - Patient Status Disposition: Home, Self-Care Condition: Good Functional capacity at discharge: independent ambulation Overall status at discharge: patient is back to baseline - Discharge Instructions Instructions: Diltiazem (By mouth), Apixaban (By mouth) Follow Up With: Wendy Karimi CNP [Partnered Physician] - 12/29/16 10:00 am (appointment is for [place], [place] location) Flor Jerome [Primary Care Provider] - (Admitted for Afib RVR. Patient was converted with medication and sent home with eliquis and 300mg cartizem. ) - Diet and Activity Activity: increase activity as tolerated Diet: advance to your usual diet Interval History: -No complaints or concerns. Feels well today and would like to go home. Hospital course: Mr. Chacko is a 61 year old male who was admitted for uncontrolled A. fib RVR. Since the time of admission cardiology has been on board. Patient started on a diltiazem drip, converted to regular sinus rhythm. EKG and Echo done. Patient home diltiazem dose increased to 300 mg once a day and discharged home. Patient is feeling well and back to baseline. Has no questions or concerns. Lives with his and has close cardiac follow-up with [facility]. - Time Spent with Patient Total time spent providing and/or coordinating discharge services: Greater than 30 minutes - Constitutional Vitals: Temp Pulse Resp BP Pulse Ox 98 F 80 16 123/79 95 12/20/16 12:28 12/20/16 12:28 12/20/16 12:28 12/20/16 12:28 12/20/16 12:28 General appearance: Present: A&O X 3 - Respiratory Respiratory exam: Present: CTAB - Cardiovascular Cardiovascular exam: Present: RRR - GI/Abdominal GI/Abdominal exam: Present: soft, no peritoneal signs. Absent: distended, tenderness - Neurological Exam Neurological exam: Present: alert, no focal deficits - Psychiatric Psychiatric exam: Present: normal affect <Jj Johnson - Last Filed: 12/20/16 16:09> Date of Encounter: 12/20/16 - Discharge Diagnosis (1) Atrial fibrillation Status: Resolved Qualifiers: Atrial fibrillation type: paroxysmal Qualified Code(s): I48.0 - Paroxysmal atrial fibrillation (2) Diabetes type 2, uncontrolled Status: Acute Qualifiers: Diabetes mellitus complication status: with hyperglycemia Diabetes mellitus tank terminal gauger insulin use: with tank terminal gauger use Qualified Code(s): E11.65 - Type 2 diabetes mellitus with hyperglycemia; Z79.4 - intermediate school teacher (current) use of insulin (3) Hyperlipidemia Status: Chronic Qualifiers: Hyperlipidemia type: mixed hyperlipidemia Qualified Code(s): E78.2 - Mixed hyperlipidemia (4) Depression Status: Chronic Qualifiers: Depression Type: unspecified Qualified Code(s): F32.9 - Major depressive disorder, single episode, unspecified (5) Obesity, Class III, BMI 40-49.9 (morbid obesity) Priority: Secondary Status: Chronic Procedures/tests Complete & Pending: Procedures Performed prior 72 hours Category Date Time Status EV echocardiogram Routine Y 12/20/16 19:02 Completed Date of admission: 12/19/16 15:39 Primary care physician: Flor Jerome Consults: 12/20/16 07:00 Consult to Cardiology [CONS] Routine Comment: Consulting Provider: Cardiology Xiomara Reason for Consult: Chronic Afib. Dr. Brooks sent from office to ED. Call Completed: Yes Hospital course: Mr. Chacko is a 61 year old male - Time Spent with Patient Total time spent providing and/or coordinating discharge services: - Constitutional Vitals: Temp Pulse Resp BP Pulse Ox 98.3 F 78 16 134/65 98 12/20/16 15:08 12/20/16 15:08 12/20/16 15:08 12/20/16 15:08 12/20/16 15:08 - Attending Attestation I examined this patient and my medical decision-making was reviewed with the Resident Physician. I agree with the documented findings, disposition and treatment plan as described except to the extent set forth below. Mr. Chacko feels well. He has had episodes of sinus rhythm but is now in a fib - rate is controlled. Appreciate card input. Changed to PO Cardizem at higher dose. No CP or SOB. Exam Alert. Comfortable Heart irreg but not tachy Lungs no wheeze Plan D/C home today on increased rate control. Follow up with cardiology and PCP.
--- NOTE | 2016-12-20 14:03 | ECHO - Doppler Report ---
Echocardiogram Name: Ty Chacko Date of Study: 12/20/2016 Date: 1955 Ht: 65.0 in Medical Record#: [id number] Age: 61 Wt: 266.0 lb Gender: Male BSA: 2.23 Order #: [id number] Location: [facility] Room #: [id number] Reading Physician: Scar Arceo DO, CLARIBEL, MIGUEL ANGEL JOHNSON Learning Manager: Danyelle Santillan RDCS, RVT Ordering Physician: Jj Johnson DO Primary Physician: Flor Jerome NP Indications: Chronic Atrial Fibrillation Impressions: Technically sub-optimal due to poor echocardiographic windows. LVEF 55-60%. Normal LV chamber size, wall thickness and function. Normal left ventricular diastolic function. Normal right ventricular structure and function. Mild to moderately dilated left atrium. Unable to estimate RVSP due to lack of TR jet. No significant valvular dysfunction. Left Ventricular Wall Motion: Rest Echo Findings All wall segments showed normal motion. Findings: Study Quality * Technically sub-optimal due to poor echocardiographic windows. ECG Findings * Appeared to be normal sinus rhythm. Left Ventricle * LVEF 55-60%. * Normal LV chamber size, wall thickness and function. * Normal left ventricular diastolic function. Right Ventricle * Normal right ventricular structure and function. Left Atrium * Mild to moderately dilated left atrium. Right Atrium * Normal right atrial size. Interatrial Septum * Interatrial septum not well evaluated. Aortic Valve * Aortic valve not well visualized. * No aortic regurgitation. * No aortic stenosis. Mitral Valve * Normal mitral valve structure and function. * No mitral regurgitation. * No mitral stenosis. Tricuspid Valve * Normal tricuspid valve structure and function. * No tricuspid regurgitation. * Unable to estimate RVSP due to lack of TR jet. Pulmonic Valve * Pulmonic valve is not well visualized. * No pulmonic regurgitation. Aorta * Normally sized aortic root. Pericardium * The pericardium appears normal. IVC * Normal IVC dimensions and inspiratory collapse. Pulmonary Artery * Normal visualized portions of the main pulmonary artery. History Diabetes Hypercholesteremia Family History of CAD Measurements: BP: 143/ 68 2D Normal Values RVIDd: 3.10 cm <2.7 cm IVSd: 1.00 cm 0.6 - 1.0 cm LVIDd: 5.20 cm 3.7 - 5.6 cm LVPWd: 1.00 cm 0.6 - 1.1 cm LVIDs: 3.30 cm 1.5 - 3.6 cm AO: 2.40 cm < 4.0 cm LA: 4.20 cm 2.0 - 4.0cm %FS: 36.50 cm >25 % LA volume: 56 Mitral Valve Peak E:.80 m/sec Peak A:.45 m/sec E/A Ratio:1.8 Peak E' Lat Camilo:13.8 cm/s Peak E' Med Camilo:6.43 cm/s E/E' Lat Ratio:5.8 E/E' Med Ratio:12.4 Updated by Scar Arceo DO, CLARIBEL, MIGUEL ANGEL JOHNSON on 12/20/2016 1:56:54 PM electronically signed on 12/20/2016 1:58:08 PM with status of Final Wall Motion Car: 1=Normal, 2=Hypokinesis, 3=Akinesis, 4=Dyskinesis, 5=Aneurysmal, 6=Hyperkinetic, X=Not Visualized (Blank)=Missing
[2016-12-20 15:11] VITALS: BP 134/65
[2016-12-20] MEDS ORDERED: *HR* Enoxaparin 40 MG/0.4 ML SYRINGE SQ SCH (18:45)
[2016-12-20] MEDS ORDERED: APIXABAN 5 MG TABLET PO SCH (21:00)
== END 2016-12-20 17:39 | disposition home or self-care (01) ==
LOC: EMEROO 14:09 → 2NENU 14:09
PROVIDERS: ADMIT Internal Medicine; ATTEND Internal Medicine

== ENCOUNTER 2017-04-27 10:27 | Inpatient (IN) ==
[2017-04-27] MEDS ORDERED: 0.9 % Sodium Chloride 1,000 ML IVC ONE (10:34)
--- NOTE | 2017-04-27 10:40 | Emergency Department Note ---
Disposition Clinical Impression: Atrial fibrillation with RVR, Hypomagnesemia Disposition: Admitted As Inpatient Condition: Fair Arrhythmia/Palpitations HPI - General Chief Complaint: ED Arrhythmia/Palpitations Stated Complaint: arrhythmia Time Seen by Provider: 04/27/17 10:28 Source: patient, EMS Mode of arrival: EMS Limitations: no limitations Nursing Notes Reviewed: Yes Vital Signs Reviewed: Yes - History of Present Illness HPI Narrative: 62-year-old male presents for evaluation of palpitations. Patient was seen at urgent care prior to arrival. Patient does have a history of A. fib. Patient' s on Cardizem as metoprolol and Eliquist. Patient denies any chest pain. Noted symptom onset this morning. Patient states he has been taking his medications as directed. Patient follows with Dr. Arceo in cardiology. Patient denies any chest pain. Patient denies any nausea or vomiting. Patient does note that he has had diarrhea ever since being on Toprol over the past month. Notes it to be nonbloody loose stools. Denies any recent antibiotic use. Denies any fevers. No diaphoresis. Does note some dyspnea on exertion. Mild cough. Denies history of heart attacks or high blood pressure. Patient does note that he is a diabetic denies any history of kidney disease. Pt Subjective Complaint: rapid heart beat - Related Data Home Medications Medication Instructions Recorded Confirmed Atorvastatin Calcium [Lipitor] 80 mg PO HS 12/19/16 04/27/17 Gabapentin [Neurontin] 300 mg PO QAM 12/19/16 04/27/17 Gabapentin [Neurontin] 900 mg PO HS 12/19/16 04/27/17 Insulin Glargine [Lantus] 30 - 40 unit SQ HS 12/19/16 04/27/17 Insulin LISPRO [Humalog Kwikpen 0 unit SQ TIDWM 12/19/16 04/27/17 U-100] Venlafaxine XR (24 HR) [Effexor Xr] 150 mg PO DAILY 12/19/16 04/27/17 Cholecalciferol (D-3) [Vitamin D] 1,000 unit PO DAILY 04/27/17 04/27/17 Diltiazem CD (24hr) [Cardizem CD] 360 mg PO DAILY 04/27/17 04/27/17 Metoprolol XL (24 HR) Succ [Toprol 50 mg PO DAILY 04/27/17 04/27/17 XL] Previous Rx's Medication Instructions Recorded Apixaban [Eliquis] 5 mg PO BID #30 tablet 12/20/16 Allergies Allergy/AdvReac Type Severity Reaction Status Date / Time cephalexin [From Keflex] Allergy See Verified 12/19/16 14:39 Comments clarithromycin [From Biaxin] Allergy See Verified 12/19/16 14:39 Comments metoclopramide [From Reglan] Allergy See Verified 12/19/16 14:39 Comments All systems ED: reviewed and negative except as stated. Constitutional: Reports: as per HPI. Denies: fever Eyes: Reports: as per HPI ENT ED: Reports: as per HPI Cardiovascular: Reports: as per HPI, palpitations, dyspnea on exertion. Denies : chest pain Respiratory: Reports: as per HPI, cough, dyspnea Gastrointestinal: Reports: as per HPI. Denies: abdominal pain, nausea, vomiting Genitourinary: Reports: as per HPI Musculoskeletal: Reports: as per HPI Integumentary: Reports: as per HPI Neurological: Reports: as per HPI Psychiatric: Reports: as per HPI Endocrine: Reports: as per HPI Hematological/Lymphatic: Reports: as per HPI Past Medical History - Past Medical History Attestation: Yes The following information was validated with the patient. Medical history: Reports: atrial fibrillation, diabetes, hypertension, kidney stones, other Surgical history: Reports: cancer surgery (Bladder), cholecystectomy, other ( Cardiac ablation 2) Psychiatric history: Reports: depression - Social History Smoking Status: Never smoker Smokeless Tobacco Status: No Alcohol use: Reports: none Drug use: Reports: none Physical Exam - General Limitations: no limitations General appearance: alert - Head Head exam: atraumatic, normocephalic, normal inspection - Eye Eye exam: Present: normal appearance, EOMI - ENT ENT exam: normal exam, mucous membranes moist - Neck Neck exam: Present: normal inspection, trachea midline - Chest Chest inspection: Present: normal inspection, symmetric chest wall rise - Respiratory Respiratory exam: Present: normal lung sounds bilaterally. Absent: respiratory distress - Cardiovascular Cardiovascular exam: Present: tachycardia, irregular rhythm. Absent: normal heart sounds - Abdominal Exam Abdominal exam: Present: soft, Non-Tender - Extremities Exam Extremities exam: Present: normal inspection. Absent: pedal edema - Expanded Lower Extremity Exam Neurovascular/Tendon exam: Present: normal capillary refill - Neurological Exam Neurological exam: Present: alert, oriented X3, CN II-XII intact - Skin Skin exam: Present: warm, dry, intact, normal color Course Course Narrative: Patient seen and examined. Patient's vitals blood pressure is normotensive. Patient is tachycardic in the 140s and 50s. Appears to be irregular. Patient will get a cardiopulmonary evaluation including chest x-ray, troponin as well as basically twice. Patient will also get treatment with IV fluids with possibly addition of Cardizem. Disposition likely admission. - Reevaluation(s) Reevaluation #1: Patient's heart rate not responding to IVFs, will trial of cardizem. Time: 11:08 Reevaluation #2: Repeat EKG shows a flutter with a rate of 79. Left axis. With approximately 4- 1 conduction. Time: 12:20 Vital Signs Temperature 98.4 F 04/27/17 10:29 Pulse Rate 158 04/27/17 10:29 Respiratory Rate 20 04/27/17 10:29 Blood Pressure 129/95 04/27/17 10:29 O2 Sat by Pulse Oximetry 100 04/27/17 10:29 Temperature 97.8 F 04/27/17 14:42 Pulse Rate 107 04/27/17 14:42 Respiratory Rate 16 04/27/17 14:42 Blood Pressure 127/54 04/27/17 14:42 O2 Sat by Pulse Oximetry 98 04/27/17 14:42 Oxygen Delivery Oxygen Delivery Room Air Arrhythmia/Palpitations - [facility] Narrative Medical decision making narrative: C2 2-year-old male history of A. fib since for evaluation from the urgent care for A. fib RVR. Patient's heart rate was in the 140s and 150s upon arrival. Patient was normotensive. Patient does have a prodromal symptom of dyspnea as well as proximal ileum months worth of loose stools. No study nonbloody. Patient was treated initially with IV fluid hydration which did not significantly respond to his heart rate. Patient then received Cardizem 20 mg. Patient's heart rate did improve. Patient labs show he was hypomagnesemic and repleted in the emergency department with IV. Patient's troponin was negative. Patient's chest x-ray showed no acute changes. Patient would likely need further cardiac monitoring given the extensive his A. fib RVR. Patient will be admitted to the hospital service further evaluation and care. Patient is agreeable to plan. - Lab Data Lab results reviewed: Yes I reviewed the patient's lab results. Result diagrams: 04/27/17 10:50 04/27/17 10:49 Lab Results 04/27/17 04/27/17 04/27/17 Range/Units 10:49 10:49 10:49 WBC (4.3-11.1) K/mcL RBC (4.19-5.50) M/mcL Hgb (12.9-16.9) g/dL Hct (37.5-50.1) % MCV (83.0-100.0) fL MCH (28.0-33.3) pg MCHC (31.6-35.5) g/dL RDW (11.5-14.5) % Plt Count (140-400) K/mcL MPV (9.4-12.4) fL Immature Gran % (0-4) % Seg Neutrophils % % Lymphocytes % % Monocytes % % Eosinophils % % Basophils % % Neutrophils # (1.6-8.9) K/mcL Lymphocytes # (0.6-4.6) K/mcL Monocytes # (0.0-1.3) K/mcL Eosinophils # (0.0-0.6) K/mcL Basophils # (0.0-0.2) K/mcL Immature Plt Fraction (1.1-6.1) % PT 17.3 H (9.4-12.1) Seconds INR 1.6 APTT 38.5 H (26.0-36.0) Seconds Sodium 139 (136-145) mEq/L Potassium 4.1 (3.5-4.5) mEq/L Chloride 105 (98-109) mEq/L Carbon Dioxide 26 (19-29) mEq/L BUN 20 (8-26) mg/dL Creatinine 1.21 (0.72-1.25) mg/dL Est GFR ( Amer) > 60 (> 60) Est GFR (Non-Af Amer) > 60 (> 60) BUN/Creatinine Ratio 17 (6-26) Glucose 127 H (70-99) mg/dL Calculated Osmolality 292 (280-300) Calcium 9.8 (8.6-10.8) mg/dL Phosphorus 3.3 (2.3-4.7) mg/dL Magnesium 1.4 L (1.6-2.6) mg/dL Troponin I 0.01 (0-0.03) ng/mL B-Natriuretic Peptide (0-100) pg/mL TSH 1.531 (0.350-4.840) mcIU/mL 04/27/17 04/27/17 Range/Units 10:50 10:50 WBC 8.6 (4.3-11.1) K/mcL RBC 5.22 (4.19-5.50) M/mcL Hgb 16.2 (12.9-16.9) g/dL Hct 47.1 (37.5-50.1) % MCV 90.2 (83.0-100.0) fL MCH 31.0 (28.0-33.3) pg MCHC 34.4 (31.6-35.5) g/dL RDW 13.3 (11.5-14.5) % Plt Count 278 (140-400) K/mcL MPV 9.2 L (9.4-12.4) fL Immature Gran % 0.2 (0-4) % Seg Neutrophils % 60.4 % Lymphocytes % 30.0 % Monocytes % 7.0 % Eosinophils % 1.5 % Basophils % 0.9 % Neutrophils # 5.2 (1.6-8.9) K/mcL Lymphocytes # 2.6 (0.6-4.6) K/mcL Monocytes # 0.6 (0.0-1.3) K/mcL Eosinophils # 0.1 (0.0-0.6) K/mcL Basophils # 0.1 (0.0-0.2) K/mcL Immature Plt Fraction 2.0 (1.1-6.1) % PT (9.4-12.1) Seconds INR APTT (26.0-36.0) Seconds Sodium (136-145) mEq/L Potassium (3.5-4.5) mEq/L Chloride (98-109) mEq/L Carbon Dioxide (19-29) mEq/L BUN (8-26) mg/dL Creatinine (0.72-1.25) mg/dL Est GFR ( Amer) (> 60) Est GFR (Non-Af Amer) (> 60) BUN/Creatinine Ratio (6-26) Glucose (70-99) mg/dL Calculated Osmolality (280-300) Calcium (8.6-10.8) mg/dL Phosphorus (2.3-4.7) mg/dL Magnesium (1.6-2.6) mg/dL Troponin I (0-0.03) ng/mL B-Natriuretic Peptide 83 (0-100) pg/mL TSH (0.350-4.840) mcIU/mL - Radiology Data Radiology results reviewed: Yes I reviewed the patient's radiology results. Chest X-Ray 04/27/17 10:34 IMPRESSION: 1. No acute cardiopulmonary disease. D/ / Rosemarie Mo MD / Rosemarie Mo MD Interpreting Provider: Rosemarie Mo MD - EKG Data EKG attestation: Yes I reviewed and interpreted this EKG. Rate: tachycardia Rhythm: A.Fib Pickford/QRS: left axis deviation Q waves: III, aVF, v1 When compared to previous EKG there are: changes noted Interpretation: nonspecific ST-T wave changes S.B.A.R. - S.B.A.Shannan Situation: Demographics Background: Presenting Complaint Assessment: Vital Signs, Course and respsone to treatment, Patient/Family Expectation, Pertinant Lab Results Recommendation: Barrier(s) to disposition, Recommendation based on pending studies, treatments, or consults S.B.A.RGavi Report Given to: Dr. Eric Pina Repor Time: 12:06 Attestation Statement - Attestation Attestation: I examined this patient and my medical decision-making was reviewed with the TRACK MAINTAINER/PA/Advanced Practice Nurse/Resident Physician. I agree with the documented findings, disposition and treatment plan as described except to the extent set forth below. 62-year-old male presents ED by EMS because of tachycardia. He felt palpitations this morning along with exertional dyspnea. He went to a clinic visit and they detected heart rate 150. He was sent to the ED by EMS. He has a history of atrial fibrillation and is currently prescribed Cardizem and eliquis. He denies associated chest pain. He denies dyspnea at rest. No fevers or chills. No productive cough. He does complain of diarrhea for the past month Well-appearing, pleasant male in no apparent distress. He is tachycardic with a rate of 150. Rhythm is regular. Oropharynx is clear moist membranes. Neck is supple. Chest clear to auscultation bilaterally. Cardiac exam; regular but tachycardic extremities are well-perfused, warm and dry. No asymmetric edema. EKG consistent with atrial flutter with a 2:1 block. Heart rate in the 150s. Metabolic workup is unremarkable except for low magnesium level I.4. He was started on Cardizem; rate slowed down to 75 but remained in atrial flutter with a 4:1 block. Magnesium was replaced with 2 g IV. He will be admitted for further monitoring and treatment. The high probability of a clinically significant, sudden or life threatening deterioration of the [Cardiovascular] system(s) required my full and direct attention, intervention and personal management. The aggregate critical care time was [32] minutes. This time is in addition to time spent performing reported procedures but includes the following: [x] Data Review and interpretation [x] Patient assessment and monitoring of vital signs [x] Documentation [x] Medication orders and management
[2017-04-27 10:57] LABS: Basophils # 0.1 K/mcL (0.0-0.2); Basophils % 0.9 %; Eosinophils # 0.1 K/mcL (0.0-0.6); Eosinophils % 1.5 %; Hematocrit 47.1 % (37.5-50.1); Hemoglobin 16.2 g/dL (12.9-16.9); Immature Granulocytes % 0.2 % (0-4); Lymphocytes # 2.6 K/mcL (0.6-4.6); Mean Corpuscular HGB Conc 34.4 g/dL (31.6-35.5); Mean Corpuscular Volume 90.2 fL (83.0-100.0); Mean Platelet Volume 9.2 fL (9.4-12.4); Monocytes # 0.6 K/mcL (0.0-1.3); Neutrophils # 5.2 K/mcL (1.6-8.9); Platelet Count 278 K/mcL (140-400); Red Blood Count 5.22 M/mcL (4.19-5.50); Red Cell Distribution Width 13.3 % (11.5-14.5); Segmented Neutrophils % 60.4 %
[2017-04-27 11:02] LABS: INR 1.6; Prothrombin Time 17.3 Seconds (9.4-12.1)
[2017-04-27 11:05] LABS: Activated Partial Thrombo Time 38.5 Seconds (26.0-36.0)
[2017-04-27 11:08] LABS: BUN/Creatinine Ratio 17 (6-26); Blood Urea Nitrogen 20 mg/dL (8-26); Calcium 9.8 mg/dL (8.6-10.8); Carbon Dioxide 26 mEq/L (19-29); Chloride 105 mEq/L (98-109); Glucose 127 mg/dL (70-99); Magnesium 1.4 mg/dL (1.6-2.6); Osmolality,Calculated 292 (280-300); Phosphorous 3.3 mg/dL (2.3-4.7); Potassium 4.1 mEq/L (3.5-4.5); Sodium 139 mEq/L (136-145); eGFR For African Americans > 60 (> 60); eGFR For Non-African Americans > 60 (> 60)
[2017-04-27 11:30] LABS: Thyroid Stimulating Hormone 1.531 mcIU/mL (0.350-4.840)
[2017-04-27] MEDS ORDERED: Naloxone 0.4 MG/ML INJ IVP PRN (12:54)
[2017-04-27] MEDS ORDERED: D5% in Water 1,000 ML IVC PRN (13:14)
[2017-04-27] MEDS ORDERED: Dextrose Gel 15 GM PO PRN ×2 (13:14)
[2017-04-27] MEDS ORDERED: *HR* Dextrose 50 % in Water (Syg) 50 ML SYRINGE IVP PRN (13:14)
[2017-04-27] MEDS ORDERED: Metoprolol XL (24 HR) Succ 25 MG TAB.ER.24H PO ONE (13:15)
--- NOTE | 2017-04-27 13:22 | Internal Med History&Physical ---
<Maxine Yang M - Last Filed: 04/27/17 13:19> Date of Encounter: 04/27/17 Time of Encounter: 13:19 Assessment and Plan (1) Atrial flutter with rapid ventricular response Current visit: Yes Status: Acute Patient presented with rapid heart rate from doctor's office, EKG showed a flutter with rapid ventricular response heart rate of 153. Patient was given 20 mg IV push of Cardizem and he converted to heart rate of 79 a flutter with 4- 1 conduction. May be secondary to hypomagnesemia. Patient reports he has been compliant with taking his medications and to take them this morning, including Cardizem 360 mg daily, metoprolol 50 mg daily and eliquis. 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 Consulted cardiology, spoke with Dr. Arceo. (2) Type 2 diabetes mellitus Current visit: Yes Status: Acute Diabetic diet Check A1c Check blood sugars before meals and at bedtime Continue basal dose of insulin 30 units at bedtime Sliding scale correction dose before meals at bedtime Hyperglycemic protocol Qualifiers: Diabetes mellitus complication status: with neurologic complications Diabetes mellitus complication detail: with polyneuropathy Diabetes mellitus boom operator insulin use: with fpc use Qualified Code(s): E11.42 - Type 2 diabetes mellitus with diabetic polyneuropathy; Z79.4 - rangeland management specialist (current) use of insulin (3) Hypomagnesemia Current visit: Yes Status: Acute Technique and 1.4. 2 g mag rider given. Recheck magnesium with labs tomorrow. (4) DVT prophylaxis Current visit: Yes Status: Acute Antiembolic stockings Patient is on Eliquis for atrial fibrillation, additional pharmacologic for prophylaxis warranted. Internal Medicine - H&P: HPI Chief complaint: rapid heart rate Admitted From: Emergency Dept Plans for Post Hospital Care: Home History of present illness: Mr. Chacko is a 62 year old male with hypertension, type 2 diabetes, and atrial fibrillation presented to the emergency department today from his doctor' s office with complaints of rapid heart rate. Patient reports that he had felt some shortness of breath on exertion, but denies any palpitations. He presented to his doctor's office today for a routinely scheduled appointment and his heart rate was found to be in the 150s. He denies any lightheadedness, chest pain, nausea, abdominal pain, fever, chills, sweats. He reports he has been having loose stools since starting metoprolol proximal 1 month ago, reports it has been getting better. He reports bilateral lower extremity neuropathy which is at his usual baseline. Dilation in the emergency department included EKG which showed A. flutter with RVR with heart rate of 153. He was given fluids and a Cardizem bolus 20 mg IV push, and heart rate improved. Repeat EKG showed a flutter with heart rate of 79. Troponin was normal at 0.01, TSH was within normal limits, BNP was normal at 83, chest x-ray showed no acute cardiopulmonary disease. His magnesium was low at 1.4, he was given a 2 g magnesium IV piggyback. On exam, patient alert and oriented, in no acute distress. Lungs are clear bilaterally to auscultation, heart has irregular rhythm. Past Med Surg Social Fam HX - Past Medical History Medical history: atrial fibrillation, diabetes, hypertension, kidney stones, other Psychiatric history: depression - Past Surgical History Surgical History: cancer surgery (Bladder), cholecystectomy, other (Cardiac ablation 2) - Social History Smoking Status: Never smoker Smokeless Tobacco Status: No Alcohol use: none Drug use: none - Family History Mother Hx Family Cardiac Disorders: No Hx Family Cancer: No Father Living Status: Hx Family Cardiac Disorders: Yes Internal Medicine - H&P: Meds Atorvastatin Calcium [Lipitor] 80 mg PO HS 12/19/16 [History] Gabapentin [Neurontin] 300 mg PO QAM 12/19/16 [History] Gabapentin [Neurontin] 900 mg PO HS 12/19/16 [History] Insulin Glargine [Lantus] 30 - 40 unit SQ HS 12/19/16 [History] Insulin LISPRO [Humalog Kwikpen U-100] 0 unit SQ TIDWM 12/19/16 [History] Venlafaxine XR (24 HR) [Effexor Xr] 150 mg PO DAILY 12/19/16 [History] Apixaban [Eliquis] 5 mg PO BID #30 tablet 12/20/16 [Rx] Cholecalciferol (D-3) [Vitamin D] 1,000 unit PO DAILY 04/27/17 [History] Diltiazem CD (24hr) [Cardizem CD] 360 mg PO DAILY 04/27/17 [History] Metoprolol XL (24 HR) Succ [Toprol XL] 50 mg PO DAILY 04/27/17 [History] Allergies cephalexin [From Keflex] Allergy (Verified 12/19/16 14:39) See Comments clarithromycin [From Biaxin] Allergy (Verified 12/19/16 14:39) See Comments metoclopramide [From Reglan] Allergy (Verified 12/19/16 14:39) See Comments All Systems PM: A 10-system review of systems was performed and is negative for pertinent findings except as documented above in the HPI. - Constitutional Constitutional: no chills, no fever(s), no night sweats - EENT Eyes: no change in vision, no discharge, no pain, no photophobia Ears: no ear discharge, no ear pain, no tinnitus Nose, mouth and throat: no dysphagia, no nasal discharge, no neck pain, no sore throat - Cardiovascular Cardiovascular ROS IM: dyspnea on exertion, no chest pain, no diaphoresis, no dyspnea, no lightheadedness, no palpitations, no syncope - Respiratory Respiratory: no cough, no dyspnea, no wheezing, no excessive phlegm production - Gastrointestinal Gastrointestinal: diarrhea, no abdominal pain, no hematemesis, no hematochezia, no melena, no nausea, no vomiting - Musculoskeletal Musculoskeletal ROS IM: no numbness, no tingling - Integumentary Integumentary IM: no rash, no unusual bruising - Neurological Neurological ROS: tingling (chronic BLE neuropathy), no confusion, no convulsions, no focal weakness, no numbness, no tremor(s) - Hematologic/Lymphatic Hematologic/Lymphatic: no easy bruising - Constitutional Vitals: Temp Pulse Resp BP Pulse Ox 98.4 F 72 18 117/81 98 04/27/17 10:29 04/27/17 11:28 04/27/17 12:38 04/27/17 12:38 04/27/17 11:28 General appearance: Present: A&O X 3, pleasant, no acute distress - Head Head exam: Present: atraumatic, normocephalic - Eye Eye exam: Present: PERRL, conjuntiva pink, sclera anicteric Pupils: Present: PERRL - Neck Neck exam general surgery: Present: supple, trachea midline. Absent: lymphadenopathy - Respiratory Respiratory exam: Present: CTAB. Absent: accessory muscle use, rales, rhonchi, wheezes - Cardiovascular Cardiovascular exam: Present: irregular rhythm, +S1, +S2, tachycardia. Absent: diastolic murmur, gallop, rubs, systolic murmur - GI/Abdominal GI/Abdominal exam: Present: normal bowel sounds, soft, no peritoneal signs. Absent: distended, tenderness - Extremities Exam Extremities exam: Present: warm, radial pulses palpable and symetrical. Absent : calf tenderness, cyanotic, pedal edema - Neurological Exam Neurological exam: Present: CN II-XII intact, oriented X3, no focal deficits. Absent: pronater drift, facial droop, speech deficit - Skin Skin exam: Present: dry, intact Internal Med - H&P Results - Labs CBC & Chem 7: 04/27/17 10:50 04/27/17 10:49 Labs: All Lab Results (24 Hours) 04/27/17 04/27/17 04/27/17 Range/Units 10:49 10:49 10:49 WBC (4.3-11.1) K/mcL RBC (4.19-5.50) M/mcL Hgb (12.9-16.9) g/dL Hct (37.5-50.1) % MCV (83.0-100.0) fL MCH (28.0-33.3) pg MCHC (31.6-35.5) g/dL RDW (11.5-14.5) % Plt Count (140-400) K/mcL MPV (9.4-12.4) fL Immature Gran % (0-4) % Seg Neutrophils % % Lymphocytes % % Monocytes % % Eosinophils % % Basophils % % Neutrophils # (1.6-8.9) K/mcL Lymphocytes # (0.6-4.6) K/mcL Monocytes # (0.0-1.3) K/mcL Eosinophils # (0.0-0.6) K/mcL Basophils # (0.0-0.2) K/mcL Immature Plt Fraction (1.1-6.1) % PT 17.3 H (9.4-12.1) Seconds INR 1.6 APTT 38.5 H (26.0-36.0) Seconds Sodium 139 (136-145) mEq/L Potassium 4.1 (3.5-4.5) mEq/L Chloride 105 (98-109) mEq/L Carbon Dioxide 26 (19-29) mEq/L BUN 20 (8-26) mg/dL Creatinine 1.21 (0.72-1.25) mg/dL Est GFR ( Amer) > 60 (> 60) Est GFR (Non-Af Amer) > 60 (> 60) BUN/Creatinine Ratio 17 (6-26) Glucose 127 H (70-99) mg/dL Calculated Osmolality 292 (280-300) Calcium 9.8 (8.6-10.8) mg/dL Phosphorus 3.3 (2.3-4.7) mg/dL Magnesium 1.4 L (1.6-2.6) mg/dL Troponin I 0.01 (0-0.03) ng/mL B-Natriuretic Peptide (0-100) pg/mL TSH 1.531 (0.350-4.840) mcIU/mL 04/27/17 04/27/17 Range/Units 10:50 10:50 WBC 8.6 (4.3-11.1) K/mcL RBC 5.22 (4.19-5.50) M/mcL Hgb 16.2 (12.9-16.9) g/dL Hct 47.1 (37.5-50.1) % MCV 90.2 (83.0-100.0) fL MCH 31.0 (28.0-33.3) pg MCHC 34.4 (31.6-35.5) g/dL RDW 13.3 (11.5-14.5) % Plt Count 278 (140-400) K/mcL MPV 9.2 L (9.4-12.4) fL Immature Gran % 0.2 (0-4) % Seg Neutrophils % 60.4 % Lymphocytes % 30.0 % Monocytes % 7.0 % Eosinophils % 1.5 % Basophils % 0.9 % Neutrophils # 5.2 (1.6-8.9) K/mcL Lymphocytes # 2.6 (0.6-4.6) K/mcL Monocytes # 0.6 (0.0-1.3) K/mcL Eosinophils # 0.1 (0.0-0.6) K/mcL Basophils # 0.1 (0.0-0.2) K/mcL Immature Plt Fraction 2.0 (1.1-6.1) % PT (9.4-12.1) Seconds INR APTT (26.0-36.0) Seconds Sodium (136-145) mEq/L Potassium (3.5-4.5) mEq/L Chloride (98-109) mEq/L Carbon Dioxide (19-29) mEq/L BUN (8-26) mg/dL Creatinine (0.72-1.25) mg/dL Est GFR ( Amer) (> 60) Est GFR (Non-Af Amer) (> 60) BUN/Creatinine Ratio (6-26) Glucose (70-99) mg/dL Calculated Osmolality (280-300) Calcium (8.6-10.8) mg/dL Phosphorus (2.3-4.7) mg/dL Magnesium (1.6-2.6) mg/dL Troponin I (0-0.03) ng/mL B-Natriuretic Peptide 83 (0-100) pg/mL TSH (0.350-4.840) mcIU/mL - Diagnostic Studies Chest x-ray Additional comments: Chest X-Ray 04/27/17 10:34 IMPRESSION: 1. No acute cardiopulmonary disease. D/ / 04/27/2017 12:04:33 Rosemarie Mo MD / [email or web address] Interpreting Provider: Rosemarie Mo MD <Torsten Jo T - Last Filed: 04/27/17 16:13> Date of Encounter: 04/27/17 Internal Medicine - H&P: HPI History of present illness: Mr. Chacko is a 62 year old male All Systems PM: A 10-system review of systems was performed and is negative for pertinent findings except as documented above in the HPI. - Constitutional Vitals: Temp Pulse Resp BP Pulse Ox 97.8 F 107 16 127/54 98 04/27/17 14:42 04/27/17 14:42 04/27/17 14:42 04/27/17 14:42 04/27/17 14:42 Internal Med - H&P Results - Labs CBC & Chem 7: 04/27/17 10:50 04/27/17 10:49 - Attending Attestation Seen and examined independently, discussed with ERNESTO Kumar 62 M with Morbid Obesity, A.flutter on BB/CCB/Eliquis, DM, Suspected MARK Presented with palpitations Physical exam significant for morbid obesity, otherwise unremarkable Work up in ER showed Hypomagnessemia, CBC WNL, EKG with Aflutter 4:1 block, HR initially 120s, decreased to 70s with cardizem Patient continued to be in flutter Toprol has been increased, home meds resumed Agree with cardiology latoya warner electrolytes Needs sleep study upon discharge....rest of details as aki ERNESTO Kumar's documentation
--- NOTE | 2017-04-27 14:55 | Cardiology Consult Note ---
Date of Encounter: 04/27/17 Time of Encounter: 14:55 Assessment and Plan (1) Atrial flutter with rapid ventricular response Current Visit: Yes Status: Acute HR currently 160's. Initial EKG in office showed SVT vs 2:1 atrial flutter. Repeat EKG in ER shows atrial flutter with RVR. ow aflutter/ afib on telemetry. Recommend starting cardizem gtt and titrate to keep HR less than 100. Increase toprol xl to 75 mg daily. On eliquis for anticoagulation. No missed doses in the last month. TSH normal. Replace magnesium. Mg 1.4. TTE 11/2016:EF 55%, no significant valvular disease. Stress test 01/2017: negative for ischemia or infarct. No further testing recommended at this time. Continue rate control. Discussion w patient/family: The assessment and plan as outlined above was discussed with the patient and/or family members who expressed understanding and agreement. All questions were answered. Thank you for involving us in the care of your patient. Please call with any questions. History of Present Illness Consult date: 04/27/17 Requesting physician: Maxine Yang Consult reason: SVT Chief complaint: SOB History of present illness: Mr. Chacko has a past medical history significant for DMII, HTN, SVT (reports x2 ablations by Dr. Earl) and PAF (Eliquis). He was seen in the out patient cardiology clinic by Wendy Karimi CNP and found to be in SVT, HR 165. He c/o SOB starting this morning. Once he presented to the ER he was found to have atrial flutter with RVR. He was given IV cardizem 20mg that did slow his HR down to the 70's atrial flutter. Cardiology consulted for further recommendation. Recent CV testing: NEELIMA 12/20/16: EF 55%, mildly dilated left atrium, no significant valvular dysfunction, normal wall motion. Event monitor 02/03/17: sinus rhythm noted, episodes of AF with RVR, PACs, PVCs, and multiple episodes of SVT noted. Regadenoson nuclear 02/16/17: No significant ECG changes with regadenoson. Gated LVEF = 72%. Perfusion imaging was negative for ischemia or infarct. Past Med Surg Social Fam HX - Past Medical History Attestation: Yes The following information was validated with the patient. Medical history: atrial fibrillation, diabetes, hypertension, kidney stones, SVT , other Psychiatric history: depression - Past Surgical History Surgical History: cancer surgery (Bladder), cholecystectomy, other (Cardiac ablation 2) - Social History Smoking Status: Never smoker Smokeless Tobacco Status: No Alcohol use: none Drug use: none - Family History Mother Hx Family Cardiac Disorders: No Hx Family Cancer: No Father Living Status: Hx Family Cardiac Disorders: Yes Medications and Allergies Atorvastatin Calcium [Lipitor] 80 mg PO HS 12/19/16 [History] Gabapentin [Neurontin] 300 mg PO QAM 12/19/16 [History] Gabapentin [Neurontin] 900 mg PO HS 12/19/16 [History] Insulin Glargine [Lantus] 30 - 40 unit SQ HS 12/19/16 [History] Insulin LISPRO [Humalog Kwikpen U-100] 0 unit SQ TIDWM 12/19/16 [History] Venlafaxine XR (24 HR) [Effexor Xr] 150 mg PO DAILY 12/19/16 [History] Apixaban [Eliquis] 5 mg PO BID #30 tablet 12/20/16 [Rx] Cholecalciferol (D-3) [Vitamin D] 1,000 unit PO DAILY 04/27/17 [History] Diltiazem CD (24hr) [Cardizem CD] 360 mg PO DAILY 04/27/17 [History] Metoprolol XL (24 HR) Succ [Toprol XL] 50 mg PO DAILY 04/27/17 [History] Allergies cephalexin [From Keflex] Allergy (Verified 12/19/16 14:39) See Comments clarithromycin [From Biaxin] Allergy (Verified 12/19/16 14:39) See Comments metoclopramide [From Reglan] Allergy (Verified 12/19/16 14:39) See Comments All Systems Review: A 10-system review of systems was performed and is negative for pertinent findings except as documented above in the HPI. Physical Examination Vital Signs, Last 4 Hours Temp Pulse Resp BP Pulse Ox 04/27/17 14:42 97.8 F 107 16 127/54 98 04/27/17 12:38 18 117/81 General: Conversant, No Apparent Distress, Other (morbidly obese male) HEENT: Atraumatic, Normocephaly, Mucus Membranes Moist Neck: No JVD, Normal carotid pulses Cardiac: Other (Irregularly irregular) Lungs: Normal Breath Sounds, No Wheeze, Rales, Rhonchi Neuro: Alert and responsive, No focal deficits noted Abdomen: Soft, Non-Tender Skin: No rashes noted on visualized skin Musculoskeletal: No Chest Wall Tenderness Extremities: No Clubbing, No Cyanosis, No Edema, Normal Pulses Results 04/27/17 10:50 04/27/17 10:49 - EKG Interpretation EKG results cardiology: personally reviewed (EKG shows atrial flutter with RVR HR 153.) Consult Discharge Plan - Plan Referrals: Flor Jerome [Primary Care Provider] -
[2017-04-27 17:47] LABS: Hemoglobin A1C 8.4 %
[2017-04-27] MEDS: Insulin LISPRO 300 UNITS/3 ML VIAL SQ SCH ×2 (17:49→21:00)
[2017-04-27] MEDS: APIXABAN 5 MG TABLET PO SCH (20:58)
[2017-04-27] MEDS: Insulin DETEMIR 100 UNIT/ML X5UNITS SQ SCH (20:59)
[2017-04-27] MEDS: Gabapentin 300 MG CAPSULE PO SCH (20:59)
[2017-04-28 04:56] LABS: Basophils # 0.1 K/mcL (0.0-0.2); Basophils % 0.7 %; Eosinophils # 0.2 K/mcL (0.0-0.6); Eosinophils % 1.8 %; Hematocrit 45.3 % (37.5-50.1); Hemoglobin 15.2 g/dL (12.9-16.9); Immature Granulocytes % 0.2 % (0-4); Lymphocytes # 3.6 K/mcL (0.6-4.6); Lymphocytes % 43.8 %; Mean Corpuscular HGB Conc 33.6 g/dL (31.6-35.5); Mean Corpuscular Hemoglobin 30.6 pg (28.0-33.3); Mean Corpuscular Volume 91.3 fL (83.0-100.0); Mean Platelet Volume 9.3 fL (9.4-12.4); Monocytes # 0.6 K/mcL (0.0-1.3); Monocytes % 6.8 %; Neutrophils # 3.8 K/mcL (1.6-8.9); Platelet Count 242 K/mcL (140-400); Red Blood Count 4.96 M/mcL (4.19-5.50); Red Cell Distribution Width 13.5 % (11.5-14.5); Segmented Neutrophils % 46.7 %
[2017-04-28 05:10] LABS: BUN/Creatinine Ratio 16 (6-26); Blood Urea Nitrogen 19 mg/dL (8-26); Carbon Dioxide 26 mEq/L (19-29); Chloride 107 mEq/L (98-109); Glucose 169 mg/dL (70-99); Magnesium 1.7 mg/dL (1.6-2.6); Osmolality,Calculated 298 (280-300); Sodium 141 mEq/L (136-145); eGFR For African Americans > 60 (> 60); eGFR For Non-African Americans > 60 (> 60)
--- NOTE | 2017-04-28 07:21 | Electrocardiograph Report ---
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
[2017-04-28] MEDS: Gabapentin 300 MG CAPSULE PO SCH ×2 (08:33→21:37)
[2017-04-28] MEDS: Insulin LISPRO 300 UNITS/3 ML VIAL SQ SCH ×4 (08:33→21:56)
[2017-04-28] MEDS: APIXABAN 5 MG TABLET PO SCH ×2 (08:33→21:35)
[2017-04-28] MEDS: Venlafaxine XR (24 HR) 150 MG CAP.ER.24H PO SCH (08:33)
[2017-04-28] MEDS: Metoprolol XL (24 HR) Succ 50 MG TAB.ER.24H PO SCH (08:34)
[2017-04-28] MEDS ORDERED: Diltiazem CD (24hr) 180 MG CAPSULE PO SCH ×2 (09:00)
[2017-04-28] MEDS ORDERED: Metoprolol XL (24 HR) Succ 25 MG TAB.ER.24H PO SCH (09:00)
[2017-04-28] MEDS ORDERED: Metoprolol XL (24 HR) Succ 50 MG TAB.ER.24H PO SCH (09:00)
--- NOTE | 2017-04-28 11:19 | Internal Med Progress Note ---
Date of Encounter: 04/28/17 Time of Encounter: 11:17 - Assessment and plan (1) Atrial fibrillation Current Visit: No Status: Resolved Assessment and plan: Known to have atrial fibrillation. Was seen in yesterday at cardiology office where EKG showed PSVT/atypical atrial flutter. Presently on Cardizem drip. Heart rate is well controlled. Cardiology on the board. Plan: I understood that patient is going to start today Rythmol. We will follow the recommendations from cardiology. Qualifiers: Atrial fibrillation type: paroxysmal Qualified Code(s): I48.0 - Paroxysmal atrial fibrillation (2) Type 2 diabetes mellitus Current Visit: Yes Status: Acute Assessment and plan: Patient has a hemoglobin A1c of 8.4. Patient claims that he is compliant with the medication. We will continue to observe. Qualifiers: Diabetes mellitus complication status: with neurologic complications Diabetes mellitus complication detail: with polyneuropathy Diabetes mellitus detention insulin use: with detention use Qualified Code(s): E11.42 - Type 2 diabetes mellitus with diabetic polyneuropathy; Z79.4 - [facility] (current) use of insulin (3) Hypomagnesemia Current Visit: Yes Status: Acute Assessment and plan: Magnesium is within normal range today. (4) DVT prophylaxis Current Visit: Yes Status: Acute Assessment and plan: Sophiequmila Medical decision making: This patient has a moderate to severe risk of worsening in spite of being being on appropriate management due to underlying heart issues - Subjective Interval history: Patient seen and examined. Chart reviewed. Patient denies chest pain, shortness of breath, dizziness or diarrhea. - Constitutional Vitals: Temp Pulse Resp BP Pulse Ox 97.9 F 107 17 124/79 94 04/28/17 08:00 04/28/17 08:57 04/28/17 08:00 04/28/17 08:57 04/28/17 08:00 General appearance: Present: A&O X 3, pleasant, no acute distress - Head Head exam: Present: atraumatic, normocephalic - Eye Eye exam: Present: PERRL, conjuntiva pink, sclera anicteric Pupils: Present: PERRL - Neck Neck exam general surgery: Present: supple, trachea midline. Absent: lymphadenopathy - Respiratory Respiratory exam: Present: CTAB. Absent: accessory muscle use, rales, rhonchi, wheezes - Cardiovascular Cardiovascular exam: Present: RRR, +S1, +S2. Absent: diastolic murmur, gallop, rubs, systolic murmur - GI/Abdominal GI/Abdominal exam: Present: normal bowel sounds, soft, no peritoneal signs. Absent: distended, tenderness - Extremities Exam Extremities exam: Present: warm, radial pulses palpable and symetrical. Absent : calf tenderness, cyanotic, pedal edema - Neurological Exam Neurological exam: Present: CN II-XII intact, oriented X3, no focal deficits. Absent: pronater drift, facial droop, speech deficit - Skin Skin exam: Present: dry, intact Internal Medicine: Result - Labs CBC & Chem 7: 04/28/17 04:23 04/28/17 04:23 Labs: Short CBC 04/28/17 Range/Units 04:23 WBC 8.2 (4.3-11.1) K/mcL Hgb 15.2 (12.9-16.9) g/dL Hct 45.3 (37.5-50.1) % Plt Count 242 (140-400) K/mcL Neutrophils # 3.8 (1.6-8.9) K/mcL BMP 04/28/17 04:23 Sodium 141 Potassium 4.0 Chloride 107 Carbon Dioxide 26 BUN 19 Creatinine 1.18 Glucose 169 H Calcium 9.0 Cardiac Enzymes 04/27/17 04/27/17 Range/Units 17:03 22:53 Troponin I 0.01 0.02 (0-0.03) ng/mL - ABG Interpretation ABG results: PT/INR, D-dimer PT 17.3 Seconds (9.4-12.1) H 04/27/17 10:49 Consult Discharge Plan - Plan Referrals: Flor Jerome [Primary Care Provider] -
--- NOTE | 2017-04-28 11:51 | Cardiology Progress Note ---
Date of Encounter: 04/28/17 Time of Encounter: 11:47 Assessment and Plan (1) PAF (paroxysmal atrial fibrillation) Current Visit: Yes Status: Acute Sympomatic PAF. R/B/A to antiarrhythmic therapy discussed. Patient agreeable to proceed. Start Rythmol today. Continue anticoagulation. 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 Plan for CV Sunday if still in AF. Discussion w patient/family: The assessment and plan as outlined above was discussed with the patient and/or family members who expressed understanding and agreement. All questions were answered. Thank you for involving us in the care of your patient. Please call with any questions. Subjective Principal diagnosis: PAF Interval history: Admitted for possible PSVT, appeared to be atrial flutter in ER, now appears to be atrial fibrillation. HR better controlled on Cardizem drip. No complaints today. Objective Vital Signs, Last 4 Hours Temp Pulse Resp BP Pulse Ox 04/28/17 11:33 77 20 112/80 04/28/17 08:57 107 124/79 04/28/17 08:00 97.9 F 108 17 139/88 94 General: Conversant, No Apparent Distress HEENT: Atraumatic, Normocephaly, Mucus Membranes Moist Neck: No JVD, Normal carotid pulses Cardiac: Other (irregular rate and rhythm) Lungs: Normal Breath Sounds, No Wheeze, Rales, Rhonchi Neuro: Alert and responsive, No focal deficits noted Abdomen: Soft, Non-Tender Skin: No rashes noted on visualized skin Musculoskeletal: No Chest Wall Tenderness Extremities: No Clubbing, No Cyanosis, No Edema Results 04/28/17 04:23 04/28/17 04:23 Lab Results 04/27/17 04/27/17 04/28/17 17:03 22:53 04:23 WBC 8.2 Hgb 15.2 Hct 45.3 Plt Count 242 Sodium Potassium Chloride Carbon Dioxide BUN Creatinine Glucose Calcium Magnesium Troponin I 0.01 0.02 04/28/17 04:23 WBC Hgb Hct Plt Count Sodium 141 Potassium 4.0 Chloride 107 Carbon Dioxide 26 BUN 19 Creatinine 1.18 Glucose 169 H Calcium 9.0 Magnesium 1.7 Troponin I - Imaging and Cardiology Stress Test: report reviewed Echo: report reviewed Consult Discharge Plan - Plan Referrals: Flor Jerome [Primary Care Provider] -
--- NOTE | 2017-04-28 13:04 | Electrocardiograph Report ---
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
[2017-04-28] MEDS: Insulin DETEMIR 100 UNIT/ML X5UNITS SQ SCH (21:55)
[2017-04-29 04:30] LABS: Basophils # 0.1 K/mcL (0.0-0.2); Basophils % 0.8 %; Eosinophils # 0.2 K/mcL (0.0-0.6); Eosinophils % 2.5 %; Hemoglobin 14.3 g/dL (12.9-16.9); Immature Granulocytes % 0.2 % (0-4); Lymphocytes # 2.9 K/mcL (0.6-4.6); Lymphocytes % 32.3 %; Mean Corpuscular HGB Conc 33.3 g/dL (31.6-35.5); Mean Corpuscular Hemoglobin 30.5 pg (28.0-33.3); Mean Corpuscular Volume 91.7 fL (83.0-100.0); Mean Platelet Volume 9.4 fL (9.4-12.4); Monocytes # 0.8 K/mcL (0.0-1.3); Monocytes % 8.9 %; Neutrophils # 4.9 K/mcL (1.6-8.9); Platelet Count 231 K/mcL (140-400); Red Blood Count 4.69 M/mcL (4.19-5.50); Red Cell Distribution Width 13.4 % (11.5-14.5); Segmented Neutrophils % 55.3 %
[2017-04-29 04:52] LABS: Alanine Aminotransferase 33 Units/L (0-55); Albumin 3.2 g/dL (3.5-5.0); Alkaline Phosphatase 95 Units/L (38-126); Aspartate Amino Transferase 20 Units/L (5-34); BUN/Creatinine Ratio 21 (6-26); Bilirubin,Total 0.6 mg/dL (0.2-1.2); Blood Urea Nitrogen 26 mg/dL (8-26); Calcium 9.6 mg/dL (8.6-10.8); Carbon Dioxide 25 mEq/L (19-29); Chloride 106 mEq/L (98-109); Globulin 3.1 g/dL (2.4-3.5); Glucose 201 mg/dL (70-99); Osmolality,Calculated 298 (280-300); Potassium 4.4 mEq/L (3.5-4.5); Sodium 139 mEq/L (136-145); Total Protein 6.3 g/dL (6.0-8.3); eGFR For African Americans > 60 (> 60); eGFR For Non-African Americans 59 (> 60)
--- NOTE | 2017-04-29 09:14 | Internal Med Progress Note ---
Date of Encounter: 04/29/17 Time of Encounter: 09:12 - Assessment and plan (1) Atrial fibrillation Current Visit: No Status: Resolved Assessment and plan: Known to have atrial fibrillation. Was seen in yesterday at cardiology office where EKG showed PSVT/atypical atrial flutter. Presently on Cardizem drip. Heart rate is well controlled. Cardiology on the board. Plan: I understood that patient is going to start today Rythmol. We will follow the recommendations from cardiology. 04/29/2017 antiarrhythmic therapy with Rythmol initiated. patient is tolerating treatment extremely well. Will continue present treatment. we will monitor EKG for QT inerval. cardiology on the board an we will follow their recommendations Qualifiers: Atrial fibrillation type: paroxysmal Qualified Code(s): I48.0 - Paroxysmal atrial fibrillation (2) Type 2 diabetes mellitus Current Visit: Yes Status: Acute Assessment and plan: Patient has a hemoglobin A1c of 8.4. Patient claims that he is compliant with the medication. We will continue to observe. Qualifiers: Diabetes mellitus complication status: with neurologic complications Diabetes mellitus complication detail: with polyneuropathy Diabetes mellitus emt intermediate insulin use: with emt intermediate use Qualified Code(s): E11.42 - Type 2 diabetes mellitus with diabetic polyneuropathy; Z79.4 - intermediate card tender (current) use of insulin (3) Hypomagnesemia Current Visit: Yes Status: Acute Assessment and plan: Magnesium is within normal range today. (4) DVT prophylaxis Current Visit: Yes Status: Acute Assessment and plan: Eliqumila Medical decision making: This patient has a moderate to severe risk of worsening in spite of being being on appropriate management due to underlying heart issues - Subjective Interval history: Patient seen and examined. Chart reviewed. Patient denies chest pain, shortness of breath, dizziness or diarrhea. 04/29/2017 patient seen and examined. Chart rewed patient claims that he feels much better as compared past 2 days - Constitutional Vitals: Temp Pulse Resp BP Pulse Ox 97.9 F 71 16 100/51 96 04/29/17 07:39 04/29/17 07:39 04/29/17 07:39 04/29/17 07:39 04/29/17 08:00 General appearance: Present: A&O X 3, pleasant, no acute distress - Head Head exam: Present: atraumatic, normocephalic - Eye Eye exam: Present: PERRL, conjuntiva pink, sclera anicteric Pupils: Present: PERRL - Neck Neck exam general surgery: Present: supple, trachea midline. Absent: lymphadenopathy - Respiratory Respiratory exam: Present: CTAB. Absent: accessory muscle use, rales, rhonchi, wheezes - Cardiovascular Cardiovascular exam: Present: RRR, +S1, +S2. Absent: diastolic murmur, gallop, rubs, systolic murmur - GI/Abdominal GI/Abdominal exam: Present: normal bowel sounds, soft, no peritoneal signs. Absent: distended, tenderness - Extremities Exam Extremities exam: Present: warm, radial pulses palpable and symetrical. Absent : calf tenderness, cyanotic, pedal edema - Neurological Exam Neurological exam: Present: CN II-XII intact, oriented X3, no focal deficits. Absent: pronater drift, facial droop, speech deficit - Skin Skin exam: Present: dry, intact Internal Medicine: Result - Labs CBC & Chem 7: 04/29/17 03:15 04/29/17 03:15 Labs: Short CBC 04/29/17 Range/Units 03:15 WBC 8.9 (4.3-11.1) K/mcL Hgb 14.3 (12.9-16.9) g/dL Hct 43.0 (37.5-50.1) % Plt Count 231 (140-400) K/mcL Neutrophils # 4.9 (1.6-8.9) K/mcL BMP 04/29/17 03:15 Sodium 139 Potassium 4.4 Chloride 106 Carbon Dioxide 25 BUN 26 Creatinine 1.24 Glucose 201 H Calcium 9.6 Liver Function 04/29/17 Range/Units 03:15 Total Bilirubin 0.6 (0.2-1.2) mg/dL AST 20 (5-34) Units/L ALT 33 (0-55) Units/L Alkaline Phosphatase 95 (38-126) Units/L Albumin 3.2 L (3.5-5.0) g/dL - ABG Interpretation ABG results: PT/INR, D-dimer PT 17.3 Seconds (9.4-12.1) H 04/27/17 10:49 - VTE Documentation of Mechanical Device: Graduated compression elastic hosiery Consult Discharge Plan - Plan Referrals: Flor Jerome [Primary Care Provider] -
--- NOTE | 2017-04-29 09:26 | Cardiology Progress Note ---
Date of Encounter: 04/29/17 Time of Encounter: 09:24 Assessment and Plan (1) PAF (paroxysmal atrial fibrillation) Current Visit: Yes Status: Acute Sympomatic PAF. Conversion to NSR on Rhythmol. Continue dosing today. ECGs okay. Continue anticoagulation. Plan to D/C in AM with outpatient followup. Discussion w patient/family: The assessment and plan as outlined above was discussed with the patient and/or family members who expressed understanding and agreement. All questions were answered. Thank you for involving us in the care of your patient. Please call with any questions. Subjective Principal diagnosis: PAF Interval history: Admitted for possible PSVT, appeared to be atrial flutter in ER, then atrial fibrillation. Rhythmol started - now NSR. Reports he feels much better. Objective Vital Signs, Last 4 Hours Temp Pulse Resp BP Pulse Ox 04/29/17 08:00 96 04/29/17 07:39 97.9 F 71 16 100/51 96 General: Conversant, No Apparent Distress HEENT: Atraumatic, Normocephaly, Mucus Membranes Moist Neck: No JVD, Normal carotid pulses Cardiac: Reg Rate and Rhythm, Normal S1 and S2, No Murmur Lungs: Normal Breath Sounds, No Wheeze, Rales, Rhonchi Neuro: Alert and responsive, No focal deficits noted Abdomen: Soft, Non-Tender, Other (Obese) Skin: No rashes noted on visualized skin Musculoskeletal: No Chest Wall Tenderness Extremities: No Clubbing, No Cyanosis, No Edema Results 04/29/17 03:15 04/29/17 03:15 Lab Results 04/29/17 04/29/17 03:15 03:15 WBC 8.9 Hgb 14.3 Hct 43.0 Plt Count 231 Sodium 139 Potassium 4.4 Chloride 106 Carbon Dioxide 25 BUN 26 Creatinine 1.24 Glucose 201 H Calcium 9.6 Total Bilirubin 0.6 AST 20 ALT 33 Alkaline Phosphatase 95 - Imaging and Cardiology Echo: report reviewed - EKG Interpretation EKG results cardiology: personally reviewed - VTE Documentation of Mechanical Device: Graduated compression elastic hosiery Consult Discharge Plan - Plan Referrals: Flor Jerome [Primary Care Provider] -
[2017-04-29] MEDS: Metoprolol XL (24 HR) Succ 50 MG TAB.ER.24H PO SCH (10:04)
[2017-04-29] MEDS: Gabapentin 300 MG CAPSULE PO SCH ×2 (10:04→20:55)
[2017-04-29] MEDS: Venlafaxine XR (24 HR) 150 MG CAP.ER.24H PO SCH (10:04)
[2017-04-29] MEDS: APIXABAN 5 MG TABLET PO SCH ×2 (10:04→20:56)
[2017-04-29] MEDS: Insulin LISPRO 300 UNITS/3 ML VIAL SQ SCH ×4 (10:05→20:57)
[2017-04-29] MEDS: Insulin DETEMIR 100 UNIT/ML X5UNITS SQ SCH (20:56)
[2017-04-30 06:33] LABS: Basophils # 0.1 K/mcL (0.0-0.2); Basophils % 0.7 %; Eosinophils # 0.2 K/mcL (0.0-0.6); Eosinophils % 2.3 %; Hematocrit 43.9 % (37.5-50.1); Hemoglobin 14.4 g/dL (12.9-16.9); Immature Granulocytes % 0.3 % (0-4); Lymphocytes # 3.2 K/mcL (0.6-4.6); Mean Corpuscular HGB Conc 32.8 g/dL (31.6-35.5); Mean Corpuscular Hemoglobin 30.4 pg (28.0-33.3); Mean Corpuscular Volume 92.8 fL (83.0-100.0); Mean Platelet Volume 9.7 fL (9.4-12.4); Monocytes # 0.6 K/mcL (0.0-1.3); Monocytes % 6.9 %; Neutrophils # 4.9 K/mcL (1.6-8.9); Platelet Count 221 K/mcL (140-400); Red Blood Count 4.73 M/mcL (4.19-5.50); Red Cell Distribution Width 13.4 % (11.5-14.5); Segmented Neutrophils % 54.8 %
[2017-04-30 07:02] LABS: Alanine Aminotransferase 30 Units/L (0-55); Albumin 3.3 g/dL (3.5-5.0); Alkaline Phosphatase 102 Units/L (38-126); Aspartate Amino Transferase 21 Units/L (5-34); BUN/Creatinine Ratio 23 (6-26); Bilirubin,Total 0.6 mg/dL (0.2-1.2); Blood Urea Nitrogen 27 mg/dL (8-26); Calcium 9.9 mg/dL (8.6-10.8); Carbon Dioxide 30 mEq/L (19-29); Chloride 105 mEq/L (98-109); Globulin 3.2 g/dL (2.4-3.5); Glucose 148 mg/dL (70-99); Osmolality,Calculated 304 (280-300); Potassium 4.4 mEq/L (3.5-4.5); Sodium 143 mEq/L (136-145); Total Protein 6.5 g/dL (6.0-8.3); eGFR For African Americans > 60 (> 60); eGFR For Non-African Americans > 60 (> 60)
[2017-04-30] MEDS: Metoprolol XL (24 HR) Succ 50 MG TAB.ER.24H PO SCH (08:06)
[2017-04-30] MEDS: Gabapentin 300 MG CAPSULE PO SCH (08:06)
[2017-04-30] MEDS: APIXABAN 5 MG TABLET PO SCH (08:06)
[2017-04-30] MEDS: Venlafaxine XR (24 HR) 150 MG CAP.ER.24H PO SCH (08:07)
[2017-04-30] MEDS: Insulin LISPRO 300 UNITS/3 ML VIAL SQ SCH ×3 (08:17→16:12)
--- NOTE | 2017-04-30 10:03 | Cardiology Progress Note ---
Date of Encounter: 04/30/17 Time of Encounter: 10:01 Assessment and Plan (1) PAF (paroxysmal atrial fibrillation) Current Visit: Yes Status: Acute Sympomatic PAF. Conversion to NSR on Rythmol. Received 5th dose this am. 24 hour telemetry review shows avg HR 68 bpm. No recurrent afib , aflutter. or SVT seen. EKG 04/29/17: HR 69 bpm, NSR, QT/QTc 380/400, QRS 101 ms. EKG 04/30/17: HR 64 bpm, NSR, QT/QTc 396/405, QRS [address] Howe. We will continue rythmol. On eliquis for anticoagulation. Okay for discharge today from cardiology standpoint. [facility] will coordinate 2 week out patient f/u. Discussion w patient/family: The assessment and plan as outlined above was discussed with the patient and/or family members who expressed understanding and agreement. All questions were answered. Thank you for involving us in the care of your patient. Please call with any questions. Subjective Principal diagnosis: PAF Interval history: No new events overnight. Initially presented with possible SVT. Found to be in atrial flutter on admission and then afib. Now NSR on rythmol. Objective Vital Signs, Last 4 Hours Temp Pulse Resp BP Pulse Ox 04/30/17 06:47 97.9 F 63 15 129/49 94 General: Conversant, No Apparent Distress HEENT: Atraumatic, Normocephaly, Mucus Membranes Moist Neck: No JVD, Normal carotid pulses Cardiac: Reg Rate and Rhythm, Normal S1 and S2, No Murmur Lungs: Normal Breath Sounds, No Wheeze, Rales, Rhonchi Neuro: Alert and responsive, No focal deficits noted Abdomen: Soft, Non-Tender Skin: No rashes noted on visualized skin Musculoskeletal: No Chest Wall Tenderness Extremities: No Clubbing, No Cyanosis, No Edema, Normal Pulses Results 04/30/17 04:25 04/30/17 04:25 Lab Results 04/30/17 04/30/17 04/30/17 04:25 04:25 04:25 WBC 9.0 Hgb 14.4 Hct 43.9 Plt Count 221 Sodium 143 Potassium 4.4 Chloride 105 Carbon Dioxide 30 H BUN 27 H Creatinine 1.20 Glucose 148 H Calcium 9.9 Magnesium 1.8 Total Bilirubin 0.6 AST 21 ALT 30 Alkaline Phosphatase 102 - EKG Interpretation EKG results cardiology: personally reviewed, other (24 hour telemetry review completed.) - VTE Documentation of Mechanical Device: Graduated compression elastic hosiery Consult Discharge Plan - Plan Referrals: Flor Jerome [Primary Care Provider] - 05/17/17 11:00 am
--- NOTE | 2017-04-30 10:17 | Discharge Summary ---
<Derian Hennessy - Last Filed: 04/30/17 16:15> Date of Encounter: 04/30/17 Time of Encounter: 10:17 - Discharge Diagnosis (1) Atrial fibrillation Priority: Primary Status: Resolved Qualifiers: Atrial fibrillation type: paroxysmal Qualified Code(s): I48.0 - Paroxysmal atrial fibrillation (2) Type 2 diabetes mellitus Priority: Secondary Status: Acute Qualifiers: Diabetes mellitus complication status: with neurologic complications Diabetes mellitus complication detail: with polyneuropathy Diabetes mellitus fpc insulin use: with water softener installer use Qualified Code(s): E11.42 - Type 2 diabetes mellitus with diabetic polyneuropathy; 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 (3) Obesity, Class III, BMI 40-49.9 (morbid obesity) Priority: Secondary Status: Chronic (4) Hypomagnesemia Priority: Secondary Status: Acute - Discharge Medications Prescriptions: Metoprolol XL (24 HR) Succ [Toprol Xl] 75 mg PO DAILY #30 tab.er.24h Home Medications: Atorvastatin Calcium [Lipitor] 80 mg PO HS 12/19/16 [History] Gabapentin [Neurontin] 300 mg PO QAM 12/19/16 [History] Gabapentin [Neurontin] 900 mg PO HS 12/19/16 [History] Insulin Glargine [Lantus] 30 - 40 unit SQ HS 12/19/16 [History] Insulin LISPRO [Humalog Kwikpen U-100] 0 unit SQ TIDWM 12/19/16 [History] Venlafaxine XR (24 HR) [Effexor Xr] 150 mg PO DAILY 12/19/16 [History] Apixaban [Eliquis] 5 mg PO BID #30 tablet 12/20/16 [Rx] Cholecalciferol (D-3) [Vitamin D] 1,000 unit PO DAILY 04/27/17 [History] Metoprolol XL (24 HR) Succ [Toprol Xl] 75 mg PO DAILY #30 tab.er.24h 04/30/17 [ Rx] Propafenone [Rhythmol] 150 mg PO Q8H tablet 04/30/17 [Rx] Allergies/Adverse Reactions: Allergies cephalexin [From Keflex] Allergy (Verified 12/19/16 14:39) See Comments clarithromycin [From Biaxin] Allergy (Verified 12/19/16 14:39) See Comments metoclopramide [From Reglan] Allergy (Verified 12/19/16 14:39) See Comments Procedures/tests Complete & Pending: Procedures Performed prior 72 hours Category Date Time Status ECG 12 lead ECG [ECG] Routine Y 04/28/17 11:54 Completed ECG 12 lead ECG [ECG] Routine Y 04/28/17 14:15 Completed ECG 12 lead ECG [ECG] Routine Y 04/28/17 18:03 Completed ECG 12 lead ECG [ECG] Routine Y 04/29/17 02:25 Completed ECG 12 lead ECG [ECG] Routine Y 04/29/17 18:09 Completed Date of admission: 04/27/17 16:51 Primary care physician: Flor Jerome Consults: Cardiology service Discharging clinician: Derian Hennessy Anticipated date of discharge: 04/30/17 - Patient Status Disposition: Home, Self-Care Condition: Good Functional capacity at discharge: uses cane/walker Overall status at discharge: patient is progressing back to baseline - Discharge Instructions Follow Up With: Scar Arceo DO [Partnered Physician] - (F/u in two weeks for a-fib, started on rythmol.) Flor Jerome [Primary Care Provider] - 05/17/17 11:00 am (F/u for hospital d/c f/u.) - Diet and Activity Activity: resume usual activities as tolerated Diet: diabetic diet, low fat, low cholesterol (cardiac diet) Hospital course: Mr. Chacko is a 62 year old male with history of hypertension, type type 2 diabetes, atrial fibrillation who presented to the ER from patient's PCP office for A. fib with rapid ventricular response, he was admitted to the hospital for the same reason, patient was initially given 20 mg IV push Cardizem and he was continued to be giving Eliquis for anticoagulation therapy, and also he was started on metoprolol succinate 25 mg and cardiology was consulted. Even though patient was on Cardizem and metoprolol XL he was still having atrial fibrillation with RVR therefore rythmol was started 2 days ago and the beta osnia dosage was increased to 75 mg by mouth daily, serial EKG was checked for 5 dosage of the medication and EKG did not show prolongation of QT and heart rate has been controlled well with normal sinus rhythm. Patient was asymptomatic this morning with normal sinus rhythm with controlled heart. Therefore patient will be discharged to home with stable condition and he will be following up with cardiology office in 2 weeks. - Time Spent with Patient Total time spent providing and/or coordinating discharge services: - Constitutional Vitals: Temp Pulse Resp BP Pulse Ox 97.9 F 63 15 129/49 94 04/30/17 06:47 04/30/17 06:47 04/30/17 06:47 04/30/17 06:47 04/30/17 06:47 General appearance: Present: cooperative, A&O X 3, pleasant, no acute distress, answers questions appropriately - Respiratory Respiratory exam: Present: CTAB. Absent: accessory muscle use, chest wall tenderness, decreased breath sounds, rales, rhonchi, wheezes - Cardiovascular Cardiovascular exam: Present: RRR, +S1, +S2. Absent: clicks, diastolic murmur, gallop, rubs, systolic murmur - GI/Abdominal GI/Abdominal exam: Present: normal bowel sounds, soft. Absent: distended, firm , guarding, rigid, tenderness - Extremities Exam Extremities exam: Present: normal inspection, warm. Absent: calf tenderness, tenderness - VTE Documentation of Mechanical Device: Graduated compression elastic hosiery <Stefan Youssef P - Last Filed: 04/30/17 16:36> Date of Encounter: 04/30/17 - Discharge Diagnosis (1) Atrial fibrillation Status: Resolved Qualifiers: Atrial fibrillation type: paroxysmal Qualified Code(s): I48.0 - Paroxysmal atrial fibrillation (2) Type 2 diabetes mellitus Status: Acute Qualifiers: Diabetes mellitus complication status: with neurologic complications Diabetes mellitus complication detail: with polyneuropathy Diabetes mellitus water softener installer insulin use: with fpc use Qualified Code(s): E11.42 - Type 2 diabetes mellitus with diabetic polyneuropathy; 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 (3) Hypomagnesemia Status: Acute (4) DVT prophylaxis Status: Acute Procedures/tests Complete & Pending: Procedures Performed prior 72 hours Category Date Time Status ECG 12 lead ECG [ECG] Routine Y 04/28/17 11:54 Completed ECG 12 lead ECG [ECG] Routine Y 04/28/17 14:15 Completed ECG 12 lead ECG [ECG] Routine Y 04/28/17 18:03 Completed ECG 12 lead ECG [ECG] Routine Y 04/29/17 02:25 Completed ECG 12 lead ECG [ECG] Routine Y 04/29/17 18:09 Completed ECG 12 lead ECG [ECG] Routine Y 04/30/17 01:25 Completed ECG 12 lead ECG [ECG] Routine Y 04/30/17 13:59 Completed Date of admission: 04/27/17 16:51 Primary care physician: [facility] Hospital course: Mr. Chacko is a 62 year old male - Time Spent with Patient Total time spent providing and/or coordinating discharge services: - Constitutional Vitals: Temp Pulse Resp BP Pulse Ox 97.9 F 65 15 133/56 98 04/30/17 14:00 04/30/17 14:00 04/30/17 14:00 04/30/17 14:00 04/30/17 14:00 - Attending Attestation I examined this patient and my medical decision-making was reviewed with the RESEARCH ANALYST/PA/Advanced Practice Nurse/Resident Physician. I agree with the documented findings, disposition and treatment plan as described except to the extent set forth below.
[2017-04-30 16:03] VITALS: BP 133/56
--- NOTE | 2017-04-30 16:12 | Electrocardiograph Report ---
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
--- NOTE | 2017-04-30 16:20 | Electrocardiograph Report ---
[place] [address] Test Date: 2017-04-29 Pat Name: Ty Chacko Department: 111 Room: 2N0 Gender: Corrective Therapy Aide: PATO : 1955 Requested By: Stefan Youssef Order Number: [id number] Reading MD: Tammi Travis Measurements Intervals [place] Rate: 69 P: 63 ME: 163 QRS: -16 QRSD: 101 T: 66 QT: 380 QTc: 400 Interpretive Statements SINUS RHYTHM NONSPECIFIC T-WAVE ABNORMALITY Electronically Signed On 04-30-2017 16:18:47 EDT by Tammi Travis
--- NOTE | 2017-04-30 16:28 | Electrocardiograph Report ---
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
--- NOTE | 2017-04-30 16:40 | Electrocardiograph Report ---
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
--- NOTE | 2017-04-30 16:47 | Electrocardiograph Report ---
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
--- NOTE | 2017-04-30 16:55 | Electrocardiograph Report ---
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
--- NOTE | 2017-04-30 16:56 | Electrocardiograph Report ---
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
== END 2017-04-30 19:11 | disposition home or self-care (01) | DRG 309 ==
LOC: 2NENU 10:27 → EMEROO 10:27 → 2NENU 14:06
PROVIDERS: ADMIT Internal Medicine; ATTEND Internal Medicine

== ENCOUNTER 2020-01-07 12:49 | Inpatient (IN) ==
[2020-01-07] MEDS ORDERED: Aspirin 81 MG TAB.CHEW PO ONE (13:12)
[2020-01-07 13:53] LABS: Basophils # 0.1 K/mcL (0.0-0.2); Basophils % 0.9 %; Eosinophils # 0.2 K/mcL (0.0-0.6); Eosinophils % 2.1 %; Hematocrit 45.3 % (37.5-50.1); Hemoglobin 15.4 g/dL (12.9-16.9); Immature Granulocytes % 0.5 % (0-4); Lymphocytes # 2.1 K/mcL (0.6-4.6); Lymphocytes % 23.2 %; Mean Corpuscular Hemoglobin 31.7 pg (28.0-33.3); Mean Corpuscular Volume 93.2 fL (83.0-100.0); Mean Platelet Volume 9.3 fL (9.4-12.4); Monocytes # 0.5 K/mcL (0.0-1.3); Monocytes % 5.6 %; Neutrophils # 6.2 K/mcL (1.6-8.9); Platelet Count 241 K/mcL (140-400); Red Blood Count 4.86 M/mcL (4.19-5.50); Red Cell Distribution Width 13.6 % (11.5-14.5); Segmented Neutrophils % 67.7 %; White Blood Count 9.1 K/mcL (4.3-11.1)
[2020-01-07 14:06] LABS: INR 1.5; Prothrombin Time 17.6 Seconds (9.4-12.1)
[2020-01-07 14:09] LABS: Activated Partial Thrombo Time 39.1 Seconds (26.0-36.0)
[2020-01-07 14:13] LABS: BUN/Creatinine Ratio 21 (6-26); Blood Urea Nitrogen 27 mg/dL (8-23); Calcium 9.7 mg/dL (8.6-10.3); Carbon Dioxide 21 mEq/L (23-29); Chloride 100 mEq/L (98-107); Glucose 241 mg/dL (70-105); Osmolality,Calculated 295 (280-300); Potassium 4.7 mEq/L (3.5-5.1); Sodium 136 mEq/L (136-145); Troponin I < 0.03 ng/mL (< 0.04); eGFR For African Americans > 60 (> 60); eGFR For Non-African Americans 56 (> 60)
[2020-01-07 16:09] LABS: Magnesium 1.4 mg/dL (1.6-2.6)
[2020-01-07 16:22] LABS: Thyroid Stimulating Hormone 1.055 mcIU/mL (0.340-5.600)
[2020-01-07] MEDS ORDERED: Naloxone 0.4 MG/ML INJ IVP PRN (16:28)
[2020-01-07] MEDS ORDERED: Ondansetron 4 MG/2 ML VIAL IVP PRN (16:28)
[2020-01-07] MEDS ORDERED: Acetaminophen 325 MG TABLET PO PRN (16:28)
[2020-01-07] MEDS ORDERED: DilTIAZem 50 MG in 0.9 % Sodium Chloride 40 ML IVC SCH (16:45)
[2020-01-07] MEDS ORDERED: Dextrose Gel 15 GM/37.5 ML TUBE PO PRN ×2 (16:49)
[2020-01-07] MEDS ORDERED: *HR* Dextrose 50 % in Water (Syg) 50 ML SYRINGE IVP PRN (16:49)
[2020-01-07] MEDS ORDERED: D5% in Water 1,000 ML IVC PRN (16:49)
[2020-01-07] MEDS ORDERED: 0.9 % Sodium Chloride 1,000 ML IV ONE (16:51)
[2020-01-07] MEDS: Insulin LISPRO 300 UNITS/3 ML VIAL SQ SCH (18:58)
[2020-01-07] MEDS: 0.9 % Sodium Chloride 1,000 ML IVC SCH (19:49)
[2020-01-07] MEDS: Insulin DETEMIR 100 UNIT/ML X5UNITS SQ SCH (20:24)
[2020-01-07] MEDS: Apixaban 5 MG TABLET PO SCH (20:24)
[2020-01-07] MEDS: DilTIAZem 50 MG in 0.9 % Sodium Chloride 40 ML IVC SCH (22:15)
[2020-01-08 04:44] LABS: Basophils # 0.1 K/mcL (0.0-0.2); Basophils % 0.7 %; Eosinophils # 0.2 K/mcL (0.0-0.6); Hematocrit 40.8 % (37.5-50.1); Immature Granulocytes % 0.1 % (0-4); Lymphocytes % 28.6 %; Mean Corpuscular HGB Conc 33.3 g/dL (31.6-35.5); Mean Corpuscular Hemoglobin 31.5 pg (28.0-33.3); Mean Corpuscular Volume 94.4 fL (83.0-100.0); Monocytes # 0.5 K/mcL (0.0-1.3); Monocytes % 6.8 %; Neutrophils # 4.3 K/mcL (1.6-8.9); Platelet Count 218 K/mcL (140-400); Red Blood Count 4.32 M/mcL (4.19-5.50); Red Cell Distribution Width 13.4 % (11.5-14.5); Segmented Neutrophils % 60.8 %
[2020-01-08 04:45] LABS: Hemoglobin 13.6 g/dL (12.9-16.9)
[2020-01-08 05:01] LABS: BUN/Creatinine Ratio 20 (6-26); Blood Urea Nitrogen 25 mg/dL (8-23); Calcium 8.9 mg/dL (8.6-10.3); Carbon Dioxide 25 mEq/L (23-29); Chloride 107 mEq/L (98-107); Glucose 130 mg/dL (70-105); Magnesium 1.8 mg/dL (1.6-2.6); Osmolality,Calculated 294 (280-300); Sodium 139 mEq/L (136-145); eGFR For African Americans > 60 (> 60); eGFR For Non-African Americans 57 (> 60)
[2020-01-08] MEDS: 0.9 % Sodium Chloride 1,000 ML IVC SCH ×2 (08:12→21:32)
[2020-01-08] MEDS: DilTIAZem 50 MG in 0.9 % Sodium Chloride 40 ML IVC SCH ×3 (08:13→19:53)
[2020-01-08] MEDS: DilTIAZem CD (24hr) 120 MG CAP.ER.24H PO SCH (08:14)
[2020-01-08] MEDS: Metoprolol XL (24 HR) Succ 50 MG TAB.ER.24H PO SCH ×2 (08:14→21:31)
[2020-01-08] MEDS: Venlafaxine XR (24 HR) 150 MG CAP.ER.24H PO SCH (08:14)
[2020-01-08] MEDS: Apixaban 5 MG TABLET PO SCH ×2 (08:14→21:31)
[2020-01-08] MEDS: Insulin LISPRO 300 UNITS/3 ML VIAL SQ SCH ×3 (08:14→17:42)
[2020-01-08 09:12] LABS: Estimated Average Glucose 171 mg/dl
[2020-01-08] MEDS ORDERED: *HR* Metoprolol 5 MG/5 ML VIAL IVP PRN (17:52)
[2020-01-08] MEDS ORDERED: *HR* Metoprolol 5 MG/5 ML VIAL IVP ONE (17:53)
[2020-01-08] MEDS ORDERED: Perflutren Lipid Microsphere 1.3 ML in 0.9 % Sodium Chloride 8.7 ML IVP ONE (20:29)
[2020-01-08] MEDS: Insulin DETEMIR 100 UNIT/ML X5UNITS SQ SCH (21:31)
[2020-01-09] MEDS: DilTIAZem 50 MG in 0.9 % Sodium Chloride 40 ML IVC SCH ×2 (00:14→03:58)
[2020-01-09 04:06] LABS: Basophils % 0.4 %; Eosinophils # 0.2 K/mcL (0.0-0.6); Eosinophils % 3.4 %; Hematocrit 37.6 % (37.5-50.1); Hemoglobin 13.1 g/dL (12.9-16.9); Immature Granulocytes % 0.3 % (0-4); Lymphocytes # 1.8 K/mcL (0.6-4.6); Lymphocytes % 26.7 %; Mean Corpuscular HGB Conc 34.8 g/dL (31.6-35.5); Mean Corpuscular Hemoglobin 32.1 pg (28.0-33.3); Mean Corpuscular Volume 92.2 fL (83.0-100.0); Mean Platelet Volume 8.8 fL (9.4-12.4); Monocytes # 0.5 K/mcL (0.0-1.3); Monocytes % 7.5 %; Neutrophils # 4.1 K/mcL (1.6-8.9); Platelet Count 194 K/mcL (140-400); Red Blood Count 4.08 M/mcL (4.19-5.50); Red Cell Distribution Width 13.5 % (11.5-14.5); Segmented Neutrophils % 61.7 %; White Blood Count 6.7 K/mcL (4.3-11.1)
[2020-01-09 04:25] LABS: BUN/Creatinine Ratio 21 (6-26); Blood Urea Nitrogen 24 mg/dL (8-23); Calcium 8.9 mg/dL (8.6-10.3); Carbon Dioxide 25 mEq/L (23-29); Chloride 109 mEq/L (98-107); Glucose 198 mg/dL (70-105); Magnesium 1.6 mg/dL (1.6-2.6); Osmolality,Calculated 298 (280-300); Phosphorous 2.7 mg/dL (2.7-4.5); Potassium 4.3 mEq/L (3.5-5.1); Sodium 139 mEq/L (136-145); eGFR For African Americans > 60 (> 60); eGFR For Non-African Americans > 60 (> 60)
[2020-01-09] MEDS: Insulin LISPRO 300 UNITS/3 ML VIAL SQ SCH ×4 (07:30→17:01)
[2020-01-09] MEDS: Venlafaxine XR (24 HR) 150 MG CAP.ER.24H PO SCH (08:00)
[2020-01-09] MEDS: Metoprolol XL (24 HR) Succ 50 MG TAB.ER.24H PO SCH ×2 (08:00→21:30)
[2020-01-09] MEDS: Apixaban 5 MG TABLET PO SCH ×2 (08:00→21:30)
[2020-01-09] MEDS: DilTIAZem CD (24hr) 120 MG CAP.ER.24H PO SCH (08:00)
[2020-01-09] MEDS: 0.9 % Sodium Chloride 1,000 ML IVC SCH (08:01)
[2020-01-09] MEDS ORDERED: Lidocaine Viscous Oral Soln 15 ML SOLUTION MM PRN ×2 (10:40→11:21)
[2020-01-09] MEDS ORDERED: *HR* FentaNYL (PF) 100 MCG/2 ML VIAL IVP PRN (10:40)
[2020-01-09] MEDS ORDERED: 0.9 % Sodium Chloride 500 ML IVC ONE ×2 (10:41→11:22)
[2020-01-09] MEDS ORDERED: *HR* Midazolam HCl 5 MG/5 ML VIAL IVP PRN (10:41)
[2020-01-09] MEDS: *HR* FentaNYL (PF) 100 MCG/2 ML VIAL IVP PRN ×2 (11:35→11:46)
[2020-01-09] MEDS: *HR* Midazolam HCl 5 MG/5 ML VIAL IVP PRN ×2 (11:35→11:40)
[2020-01-09] MEDS: Insulin DETEMIR 100 UNIT/ML X5UNITS SQ SCH (21:29)
[2020-01-10 07:01] LABS: Basophils # 0.1 K/mcL (0.0-0.2); Basophils % 0.7 %; Eosinophils # 0.2 K/mcL (0.0-0.6); Eosinophils % 3.3 %; Hematocrit 37.3 % (37.5-50.1); Hemoglobin 12.2 g/dL (12.9-16.9); Immature Granulocytes % 0.6 % (0-4); Lymphocytes # 1.6 K/mcL (0.6-4.6); Lymphocytes % 22.4 %; Mean Corpuscular HGB Conc 32.7 g/dL (31.6-35.5); Mean Corpuscular Hemoglobin 31.5 pg (28.0-33.3); Mean Corpuscular Volume 96.4 fL (83.0-100.0); Mean Platelet Volume 9.7 fL (9.4-12.4); Monocytes # 0.5 K/mcL (0.0-1.3); Monocytes % 7.4 %; Neutrophils # 4.7 K/mcL (1.6-8.9); Platelet Count 197 K/mcL (140-400); Red Blood Count 3.87 M/mcL (4.19-5.50); Red Cell Distribution Width 13.7 % (11.5-14.5); Segmented Neutrophils % 65.6 %; White Blood Count 7.2 K/mcL (4.3-11.1)
[2020-01-10 07:15] LABS: BUN/Creatinine Ratio 19 (6-26); Blood Urea Nitrogen 21 mg/dL (8-23); Calcium 8.9 mg/dL (8.6-10.3); Carbon Dioxide 23 mEq/L (23-29); Chloride 105 mEq/L (98-107); Glucose 167 mg/dL (70-105); Magnesium 1.7 mg/dL (1.6-2.6); Osmolality,Calculated 297 (280-300); Phosphorous 2.5 mg/dL (2.7-4.5); Potassium 4.1 mEq/L (3.5-5.1); Sodium 140 mEq/L (136-145); eGFR For African Americans > 60 (> 60); eGFR For Non-African Americans > 60 (> 60)
[2020-01-10 07:58] VITALS: BP 128/62
[2020-01-10] MEDS: Metoprolol XL (24 HR) Succ 50 MG TAB.ER.24H PO SCH (08:27)
[2020-01-10] MEDS: Venlafaxine XR (24 HR) 150 MG CAP.ER.24H PO SCH (08:27)
[2020-01-10] MEDS: Insulin LISPRO 300 UNITS/3 ML VIAL SQ SCH (08:28)
[2020-01-10] MEDS: Apixaban 5 MG TABLET PO SCH (08:28)
[2020-01-10] MEDS: DilTIAZem CD (24hr) 120 MG CAP.ER.24H PO SCH (08:28)
== END 2020-01-10 11:35 | disposition home or self-care (01) | DRG 309 ==
LOC: 2ANU 12:49 → EMEROOARM 12:49 → 2ANU 17:51
PROVIDERS: ADMIT Pharmacist; ATTEND Pharmacist